=== PATIENT | male | born 1945 | race Caucasian/White ===

== ENCOUNTER → 2017-06-27 | Outpatient (CLI) | payer OTHER ==
[~2017-06-27] MED LIST: ALIS150T3 PO; AMLO10TA4 PO; AVD5 PO; BUPR-79 PO; CTP1X PO; DEXL60CA4 PO; FLUT1INH; METO50TA7 PO; OXYC1CAP5 PO; PLV75 PO; RANI300C PO; REGADENOSON 0.4 MG/5 ML SYR ONE; ROPI0.25 PO; SULF800T23 PO; TERA1CAP63 PO; UMEC1INH INH
--- NOTE | 2017-06-27 19:19 | Myocardial Perfusion Study ---
Myocardial Perfusion Study Rpt Myocardial Perfusion Study Rpt Date of Service 06/27/2017 Myocardial Perfusion Study Rpt Procedure: 1. Myocardial perfusion study performed in multiple views/images 2. Lexiscan pharmacologic stress ECG Indications: 1. Chest pain Consent: Informed written consent was obtained prior to the procedure. Ordering physician: Dr. Stock Primary chro: Dr. Barcenas Procedural details: For the stress portion of the study, Lexiscan 0.4 mg was intravenously administered followed by a saline flush. This was followed by 33.4 mCi of technetium 99m Cardiolite, injected at 1:12 p.m. on 06/27/2017. 30 minutes following the injection, imaging of the heart was performed in multiple projections. For the rest portion of the study, 10.5 mCi technetium 99m Cardiolite was injected intravenously at 11:30 a.m. on 06/27/2017. 1 hour following the injection, imaging of the heart was performed in the same projections. Lexiscan stress ECG: Resting ECG demonstrated: Sinus bradycardia at 50 bpm Maximum heart rate: 83 bpm Resting blood pressure: 146/71 mmHg Maximum blood pressure: 141/78 mmHg Maximal, age-predicted heart rate: 56 % Significant ST changes: None Arrhythmia: None Symptoms: No chest pain. Findings: Rotating raw imaging demonstrated no significant lung uptake. Motion artifact noted in rest imaging. Heart size appeared normal. Myocardial perfusion demonstrated moderate sized area with severely reduced uptake involving the inferior and inferolateral wall segments from base to distal left ventricle, which was reversible. There is no significant fixed defect to suggest infarct. Ejection fraction: 63 % Wall motion: Normal No significant transient ischemic dilation. Impression: 1. Abnormal Lexiscan myocardial perfusion study suggesting inferior and inferolateral ischemia (base to distal LV). 2. Normal LV systolic function. EF 63%. 3. Normal wall motion. 4. No chest pain reported. 5. Nondiagnostic Lexiscan ECG. 6. Dr. Barcenas was notified of the findings.
== END | disposition home or self-care (01) ==
LOC: C.NUCL 11:08
PROVIDERS: ATTEND Physician Assistant Medical
DX: R07.9 Chest pain, unspecified (principal); R94.39 Abnormal result of other cardiovascular function study

== ENCOUNTER → 2017-07-10 | Outpatient (CLI) | payer OTHER ==
[~2017-07-10] MED LIST changes: -REGADENOSON 0.4 MG/5 ML SYR ONE
--- NOTE | 2017-07-10 15:22 | DIAGNOSTIC IMAGING REPORT ---
CHEST 2 VIEWS ROUTINE CLINICAL HISTORY: Preoperative evaluation. COMPARISON STUDY: Chest radiograph 07/15/2016. FINDINGS: Lung volumes are normal. No pneumothorax or pleural effusion is present. There is borderline cardiomegaly without evidence of pulmonary edema. Mild opacity along the left heart border likely reflects epicardial fat pad or atelectasis. There is no consolidation to suggest pneumonia. IMPRESSION: No acute cardiopulmonary findings. Electronically signed by: Tony Reynoso M.D. 07/10/2017 3:21 PM Dictated Date/Time: 07/10/2017 3:20 PM
[2017-07-10 16:53] LABS: HEMATOCRIT 37.4 % (42-52); MEAN CELL VOLUME 91.7 fL (80-100); MEAN CORPUSCULAR HEMOGLOBIN 31.4 pg (25-34); MEAN CORPUSCULAR HGB CONC 34.2 g/dl (32-36); MEAN PLATELET VOLUME 10.4 fL (7.4-10.4); PLATELET COUNT 153 K/uL (130-400); RED BLOOD COUNT 4.08 M/uL (4.7-6.1); WHITE BLOOD COUNT 6.77 K/uL (4.8-10.8)
[2017-07-10 16:59] LABS: PROTHROMBIN TIME (PATIENT) 11.1 SECONDS (9.0-12.0)
[2017-07-10 17:08] LABS: BLOOD UREA NITROGEN 14 mg/dl (7-18); BUN/CREATININE RATIO 9.5 (10-20); CALCIUM 8.6 mg/dl (8.5-10.1); CARBON DIOXIDE 27 mmol/L (21-32); CHLORIDE 108 mmol/L (98-107); GLUCOSE 100 mg/dl (70-99); POTASSIUM 4.3 mmol/L (3.5-5.1); SODIUM 142 mmol/L (136-145)
== END | disposition home or self-care (01) ==
LOC: C.RAD 14:58
PROVIDERS: ATTEND Internal Medicine Cardiovascular Disease
DX: Z01.818 Encounter for other preprocedural examination (principal)

== ENCOUNTER → 2017-07-17 | Day surgery (SDC) | payer OTHER ==
[~2017-07-17] VITALS: Ht 177.8 cm; Wt 105.0 kg
[~2017-07-17] MED LIST changes: +ACETAMINOPHEN 325 MG TAB PO PRN; +ADENOSINE IV SOLN 3 MG/ML 20 ML VIAL ONE; +ALUMINUM/MAGNESIUM/SIMETH (MAALOX MAX) 30 ML UDC ONE; +ATORVASTATIN 40 MG TAB PO SCH; +DUTA0.5C PO; +FENTANYL CITRATE INJ 50 MCG/1 ML 2 ML VIAL ONE; +HEPARIN SOD (PORCINE) 1000 UNIT/ML 10 ML VIAL ONE; +IMDSR30 PO; +ISOSORBIDE MONONITRATE 30 MG TABCR PO ONE; +ISOSORBIDE MONONITRATE 30 MG TABCR PO SCH; +MIDAZOLAM HCL 1 MG/ML 2ML VIAL ONE; +NEBI10TA2 PO; +NITROGLYCERIN 0.4 MG SL PER TAB CHARGE SL PRN; +NITROGLYCERIN/D5W 100MCG/ML 20ML SYR ONE; +NTRSLP4 SL; +NiCARDipine HCL INJ 2.5 MG/ML 10 ML AMP ONE; +ONDANSETRON INJ 2 MG/ML 2 ML VIAL IV PRN; +OXYC-106 PO; +PANT40TA PO; +SODIUM CHLORIDE 0.9% 1000ML 1,000 ML IV SCH; +SODIUM CHLORIDE 0.9% 1000ML 250 ML IV PRN
[2017-07-17 07:09] VITALS: BP 154/93; PULSE 80; TEMP 36.3; O2SAT 100; Ht 177.8 cm; Wt 105.0 kg
--- NOTE | 2017-07-17 08:00 | History and Physical ---
History & Physical Date of Service Jul 17, 2017. History & Physical CHIEF COMPLAINT: Here for cardiac catheterization. HPI: Mr. Reyes is a very pleasant 72-year-old gentleman with a history significant for peripheral arterial disease status post aortobifemoral bypass, hypertension , COPD, and symptoms concerning for angina. His primary signal intelligence analyst is Dr. Barcenas. He has been having increasingly worsening anginal symptoms that are also happening more frequently and with less exertion. He describes angina as a substernal chest pain described as an indigestion that radiates to the left side of his chest toward his left shoulder. It is accompanied by shortness of breath but no diaphoresis. It occurs only with exertion but minimal exertion such as taking a shower can cause the pain. His last episode was last evening. The chest discomfort resolves within a few minutes of rest. He denies rest symptoms. He underwent a myocardial perfusion study on 06/27/2017 which demonstrated a moderate sized area with severely reduced uptake involving the inferior and inferolateral wall segments from base to distal left ventricle, which was reversible, suggesting ischemia. EF was 63% and wall motion was normal. Exercise is otherwise limited secondary to right lower extremity claudication. He follows with vascular surgery. Reports a severe allergy to aspirin. He took very high doses of aspirin many years ago and required resuscitation according to his report. He has been maintained on Plavix. Review of systems: As above. Past medical history: 1. CAD status post aorto bi femoral bypass surgery. 2. Hypertension 3. GERD 4. BPH 5. COPD 6. Eczema Home medications include: 1. Clonidine 0.1 mg twice daily 2. Hytrin 10 mg q.h.s. 3. Breo Ellipta 4. Plavix 75 mg daily 5. Protonix 40 mg daily 6. Amlodipine 10 mg daily 7. Dutasteride 0.5 mg daily 8. Bystolic 10 mg b.i.d. 9. Ranitidine 300 mg daily 10. Percocet every 6 hours as needed for pain 11. Avodart 0.5 mg 12. Incruse Ellipta inhaler Allergies: ASATolectin and was told that he is allergic to aspirin with severe reaction requiring resuscitation. Social history: Former smoker, quit at the age of 70. Lives with his ex-, Jon. He is a . Two children. Exam: Temperature 36.3 C. Pulse 80 bpm. Respiration rate 20. Blood pressure 154/ 93mmHg. Oxygen saturation 100% on room air. Generally: No acute distress. Neck: No JVD. Cardiac: Distant heart sounds. Normal S1 and S2 without audible murmur, rub or gallop. Lungs: Clear to auscultation but decreased breath sounds throughout. Abdomen: Nontender, nondistended, normoactive bowel sounds. Extremities: 2+ radial pulses bilaterally; nivia's test okay. 1+ right femoral pulse without bruit. 2+ left femoral pulse without bruit. No edema or cyanosis. Labs 07/10/2017: INR 1; WBC 6.7; hemoglobin 12.8; platelets 153; sodium 142; potassium 4.3; BUN 14; creatinine 1.5; glucose 100 ASSESSMENT/PLAN: 1. Angina: Symptoms concerning for worsening angina. Coronary angiography has been recommended by his primary signal intelligence analyst, Dr. Barcenas. Risks and benefits of the procedure were discussed with him in detail. He was made aware that CT surgery is not available at this facility. He has given informed written consent to undergo diagnostic coronary angiography, and PCI, if deemed appropriate, at this facility. 2. Presumed CAD based on abnormal nuclear stress: Will definitively evaluate for coronary artery disease with coronary angiography. 3. CAD: Continue anti-platelet therapy. Consider high-intensity statin therapy. 4. CKD: He is receiving IV fluids. 5. Disposition: Coronary angiography pending.
--- NOTE | 2017-07-17 08:01 | Procedure Note ---
Pre-Mod Sedation Assessment General Date of Moderate Sedation: Jul 17, 2017. Vital Signs: Vital Signs Past 12 Hours Date Time Temp Pulse Resp B/P (MAP) Pulse Ox O2 Delivery O2 Flow Rate FiO2 07/17/17 07:09 36.3 80 20 154/93 100 Room Air Review Cardiovascular: regular rate, rhythm, no murmur Abdomen: non tender, soft Lungs: lungs clear Pre-Sedation Airway Assessment Oral Cavity: Dentures Short Thick Neck: No Hx of Sleep Apnea: No Smoking Status: Never Smoker Procedure Planning Contraindications-for Mod Sed: None Yes Notes The planned sedation has been discussed with the patient and consent obtained. I have identified the patient, determined the appropriateness of sedation and have assessed the patient immediately prior to the procedure. All medicine(s) and interventions are by my order.
--- NOTE | 2017-07-17 09:15 | Cardiac Catheterization ---
Procedure Note Procedure Date Jul 17, 2017. Pre-Procedure Diagnosis Angina, Positive Stress Test AUC Score 9 Post-Procedure Diagnosis Severe CAD Procedure(s) Performed Coronary Angiography, Left Heart Cath Design Chief Dr. Cali Sorter Pricer(s) Huang Estimated Blood Loss < 20 ml Medication(s) Fentanyl, Heparin, Nicardipine, Versed, Lidocaine 1% Summary of Findings Coronary angiography: 1. Left main coronary artery: The LMCA is large in caliber without significant CAD. 2. Left anterior descending: The LAD extends toward the apex. Ostial to proximal LAD 50% visually. Early mid LAD long stenotic lesion 50-70%. Distal LAD 30%. Very small caliber D1. Medium caliber D2 with mid 60% stenosis. 3. Circumflex: The circumflex is a medium caliber vessel. Mid circumflex sequential 70 and 80% stenotic lesions. Very small caliber OM1. 4. Ramus intermedius: Ramus intermedius is a large caliber vessel. Ostial to proximal ramus intermedius 30-40. Lateral branch without significant CAD. 5. Right coronary artery: The RCA is very large in caliber and dominant. Proximal RCA 60%. Mid RCA 98% with YANELI 3 flow. There appears to be large calcification burden within the mid RCA stenosis. Distal RCA 30%. Very large caliber PDA and medium caliber posterior lateral branch without significant CAD. Left heart catheterization: 1. Left ventriculography was not performed to conserve contrast given CKD. 2. Normal LVEDP; 11 mmHg. 3. No significant aortic stenosis. Transvalvular peak to peak gradient 0 mmHg. Sedation start time 8:03 a.m. Sedation end time 8:27 a.m. Procedure notes: 1. Diagnostic coronary angiography was performed via the right radial artery without complication. Impression: 1. Severe CAD involving the mid RCA (large calcium burden suspected) and mid circumflex vessels. 2. Borderline severe CAD involving the proximal to mid LAD. 3. Otherwise, nonobstructive CAD as noted above. 4. No aortic stenosis. 5. Normal LVEDP. Plan: 1. FFR of LAD pending with Dr. Laguerre of interventional Cardiology. 2. Dr. Laguerre has reviewed images. RCA PCI felt to be high risk given calcium burden. 3. If FFR of LAD is abnormal, would consider CT surgery evaluation for multivessel bypass. 4. Recommend initiation of high-intensity statin therapy. 5. Optimize medical therapy for angina. Hemodynamics Rest Ao: 137/53 Final Ao: 128/57 LV: 116/9/11 Recommendations management recommendations (FFR of LAD. ) Specimens None Radiation Exposure (mGy) 1344 mGy. Fluoro time 3.6 min. Contrast (mls) 65 ml visipaque Procedural Complication(s) None Disposition Face And Fill Packer Holding/Recovery (remained in prosthetic lab technician for FFR) ACC Data Cardiac Status Clinical evaluation leading to the procedure CAD Presntation: Unstable angina, Positive Stress Test Anginal Classification: CCS III Heart Failure: No Cardiogenic Shock w/in 24Hrs: No Cardiac Arrest w/in 24Hrs: No Imaging studies past 6 months: No Stress studies past 6 months: Yes Standard Exercise Stress Test: No Stress Testing w/SPECT MPI: Yes - Positive, Risk/Extent of Ischemia (High) Cardiac CTA: No Coronary Anatomy Dominant: Right Left Main (% Stenosis): Normal LAD (% Stenosis): Ostial (50%), Proximal (50%), Mid (60%), Distal (30%) D1 (% Stenosis): Mid (60%) Circumflex (% Stenosis): Mid (70% and 80% sequential stenoses) OM1 (% Stenosis): Normal RCA (% Stenosis): Proximal (60%), Mid (98%), Distal (30%) R PDA (% Stenosis): Normal R PL1 (% Stenosis): Normal Ramus (% Stenosis): Ostial (30%) Left Ventricular Angiography EF (%): n/a Diagnostic Physician's Name: Edgardo Cali MD Status: Elective Closure Device Percutaneous Entry Location: Radial Closure Device: Radial Band (following FFR by Dr. Laguerre) Recommendations: management recommendations (FFR of LAD)
--- NOTE | 2017-07-17 09:52 | Discharge Instructions ---
Discharge Instructions Date of Service Jul 17, 2017. Visit Reason for Visit: Cardiac catheterization Discharge Discharge Diagnosis / Problem: Severe multivessel coronary artery disease. Discharge Goals Goal(s): Diagnostic testing Medications Restart Stopped Medication(s): Resume your usual medications. Start Imdur 30 mg once daily. Activity Recommendations Activity Limitations: per Instructions/Follow-up section Anesthesia . Post Anesthesia Instructions: If you have had General Anesthesia or IV Sedation: * Do not drive today. * Resume driving when surgeon permits. * Do not make important decisions or sign legal documents today. * Call surgeon for: 1. Temperature elevations greater than 101 degrees F. 2. Uncontrollable pain. 3. Excessive bleeding. 4. Persistent nausea and vomiting. 5. Medication intolerance (nausea, vomiting or rash). * For nausea and vomiting use only clear liquids such as: tea, soda, bouillon until nausea subsides, then gradually increase diet as tolerated. * If you have any concerns or questions, call your surgeon's office. If physician is unavailable and it is an emergency, call 911 or go to the nearest emergency room. . Instructions / Follow-Up Instructions / Follow-Up Follow Up: 1. CT surgery at [facility] in [place] to evaluate for possibility of bypass surgery. 2. Follow up with Dr. Barcenas will be arranged for you. His office will contact you with time/date of appointment. ACTIVITY RECOMMENDATIONS: Excess manipulation of the wrist should be avoided for the next 24-48 hours. * No lifting over 2 pounds (approximately a 1/2 gallon of milk) with the utilized arm for 24 hours. * No strenuous activity such as bowling or tennis for 3 days. * Keep the site of the procedure covered with a bandage for 24 hours. *You may shower the day after the procedure. Do not take a tub bath or submerge the puncture site in water for the next 3 days. *Do not operate any motorized equipment for 3 days. SPECIAL CARE INSTRUCTIONS: The site may be slightly bruised and sore following your procedure. Should any of the following occur, contact the DrMaricarmen who performed your procedure. 1. Redness/inflammation, swelling, chills, or fever, or colored drainage at procedure site within 3-7 days after your procedure. 2. Coldness, discoloration, ongoing numbness, severe pain, or swelling. Expect mild tingling of hand and tenderness at the puncture site for up to three days. If this persists beyond three days, or other symptoms develop, notify the Dr. who performed your procedure. BLEEDING: If the procedure site on your wrist begins to bleed, do not panic 1. Place 1 or 2 fingers firmly just slightly above the insertion site to stop the bleeding. You may be able to feel your pulse as you hold pressure. 2. Lift your finger after 5 minutes to see if the bleeding has stopped. 3. Once the bleeding has stopped, gently wipe the wrist area clean with a bandage. * If the bleeding from your wrist does not stop after 10 minutes, or if there is a large amount of bleeding or spurting, call 911 (do not drive yourself to the hospital). SKIN IRRITATION: * You may experience some redness and/or swelling in the area where radiation was administered. If any skin irritation occurs, please contact your family physician. FOLLOW UP VISIT: Keep any scheduled doctor appointments. Diet Recommendations Recommended Home Diet: low cholesterol Procedures Procedures Performed: Coronary angiography and left heart catheterization. FFR. Pending Studies Studies pending at discharge: yes List of pending studies: Lab work in 2-3 days. Medical Emergencies . Who to Call and When: Medical Emergencies: If at any time you feel your situation is an emergency, please call 911 immediately. . Non-Emergent Contact Non-Emergency issues call your: Primary Care Provider, International Organizer . . "Provider Documentation" section prepared by Edgardo Funez. .
--- NOTE | 2017-07-17 09:56 | Cardiac Catheterization ---
Procedure Note Procedure Date Jul 17, 2017. Pre-Procedure Diagnosis Angina, Positive Stress Test, CAD AUC Score 9 Post-Procedure Diagnosis Severe CAD, Cardiothoracic Finding (FFR of proximal LAD is physiologically significant) Procedure(s) Performed Coronary Angiography, Fractional Flow Marty Cotton Wringer Dr. Laguerre Food Vendor(s) Luciana Encinas, RTR Estimated Blood Loss 15 ml Medication(s) Heparin, Nicardipine (intra arterial), Versed, Adenosine Intravenous adenosine given at dose of 180 ug/kg/min for two minutes Summary of Findings Indications: Moderate proximal and early mid LAD stenoses on diagnostic coronary angiography performed by Dr. Jim Cali. Catheterization site: 6 Fr Slender Glidesheath right radial artery inserted at time of diagnostic procedure. Equipment: 6 Fr EBU 3.75 guide catheter, PingTune pressure wire. Protocol: IV heparin given to achieve a therapeutic ACT. After calibration and normalization of the pressure wire it was inserted into the LAD with transducer past the early mid LAD stenosis. IFR first measured. FFR then measured after IV adenosine given for two minutes over 2 minutes at a dose of 180 ug/kg/min.Follow up angiography then performed from orthogonal projections. Findings: IFR 0.84. FFR 0.76. No evidence of dissection, thrombus, perforation, or distal embolic event. YANELI 3 flow in LAD pre and post wire insertion. Hemodynamics Rest Ao: 128/58/74 mm Hg Final Ao: 136/56/88 mm Hg LV: NA Recommendations CABG Specimens None Radiation Exposure (mGy) total of 2531 for diagnostic and FFR procedure Contrast (mls) total of 135 ml Visipaque for both procedures Fluids (cc crystalloids) total of 540 ml for both procedures Drains none Anesthesia IV Versed. Start 8:52. End 9:10. Procedural Complication(s) None Disposition Route Service Representative Holding/Recovery ACC Data Cardiac Status Clinical evaluation leading to the procedure CAD Presntation: Unstable angina, Positive Stress Test Anginal Classification: CCS III Heart Failure: No Cardiogenic Shock w/in 24Hrs: No Cardiac Arrest w/in 24Hrs: No Imaging studies past 6 months: Yes Stress studies past 6 months: Yes Standard Exercise Stress Test: No Stress Echocardiogram: No Stress Testing w/SPECT MPI: Yes - Positive, Risk/Extent of Ischemia (High) Cardiac CTA: No Coronary Anatomy Dominant: Right LAD (% Stenosis): Ostial (50), Mid (60-70) Left Ventricular Angiography EF (%): NA Diagnostic Physician's Name: Edgardo Cali MD Status: Elective Closure Device Percutaneous Entry Location: Radial Closure Device: Radial Band Recommendations: CABG Lesion Segment Name: Ostial and early mid LAD Culprit Artery: Yes Stenosis Prior to Rx (%): 50,60-70 Chronic Total Occlusion: No IVUS: No FFR: Yes (0.76) Ratio: greater than 0.75% Pre-Procedure YANELI Flow: 3 Previously Treated Lesion: No Lesion Complexity: Non-High/Non-C Lesion Length (mm): 3,9 Thrombus Present: No Bifurcation Lesion: No Guidewire Across Lesion: Yes Guidewire: Stenosis Post-Procedure (%): 50,60-70 Post-Procedure YANELI Flow: 3 Device(s) Deployed: No Intraprocedure Events Significant Dissection: No Perforation: No
[2017-07-17 12:00] VITALS: BP 100/52; PULSE 57; O2SAT 95
== END | disposition home or self-care (01) ==
LOC: C.CATH 06:59
PROVIDERS: ATTEND Internal Medicine Cardiovascular Disease
DX: I25.10 Atherosclerotic heart disease of native coronary artery without angina pectoris (principal); I12.9 Hypertensive chronic kidney disease with stage 1 through stage 4 chronic kidney disease, or unspecified chronic kidney disease; N18.9 Chronic kidney disease, unspecified; K21.9 Gastro-esophageal reflux disease without esophagitis; N40.0 Benign prostatic hyperplasia without lower urinary tract symptoms; I73.9 Peripheral vascular disease, unspecified; R53.82 Chronic fatigue, unspecified; L30.9 Dermatitis, unspecified; J44.9 Chronic obstructive pulmonary disease, unspecified; K57.30 Diverticulosis of large intestine without perforation or abscess without bleeding; Z87.891 Personal history of nicotine dependence

== ENCOUNTER → 2017-07-21 | Outpatient (CLI) | payer OTHER ==
[~2017-07-21] MED LIST changes: -ACETAMINOPHEN 325 MG TAB PO PRN; -ADENOSINE IV SOLN 3 MG/ML 20 ML VIAL ONE; -ALIS150T3 PO; -ALUMINUM/MAGNESIUM/SIMETH (MAALOX MAX) 30 ML UDC ONE; -ATORVASTATIN 40 MG TAB PO SCH; -BUPR-79 PO; -DEXL60CA4 PO; -FENTANYL CITRATE INJ 50 MCG/1 ML 2 ML VIAL ONE; -HEPARIN SOD (PORCINE) 1000 UNIT/ML 10 ML VIAL ONE; -ISOSORBIDE MONONITRATE 30 MG TABCR PO ONE; -ISOSORBIDE MONONITRATE 30 MG TABCR PO SCH; -METO50TA7 PO; -MIDAZOLAM HCL 1 MG/ML 2ML VIAL ONE; -NITROGLYCERIN 0.4 MG SL PER TAB CHARGE SL PRN; -NITROGLYCERIN/D5W 100MCG/ML 20ML SYR ONE; -NiCARDipine HCL INJ 2.5 MG/ML 10 ML AMP ONE; -ONDANSETRON INJ 2 MG/ML 2 ML VIAL IV PRN; -OXYC1CAP5 PO; -ROPI0.25 PO; -SODIUM CHLORIDE 0.9% 1000ML 1,000 ML IV SCH; -SODIUM CHLORIDE 0.9% 1000ML 250 ML IV PRN; -SULF800T23 PO
[2017-07-21 18:00] LABS: BLOOD UREA NITROGEN 15 mg/dl (7-18); BUN/CREATININE RATIO 10.5 (10-20); CALCIUM 9.3 mg/dl (8.5-10.1); CARBON DIOXIDE 25 mmol/L (21-32); CHLORIDE 106 mmol/L (98-107); CREATININE 1.38 mg/dl (0.60-1.40); GLUCOSE 112 mg/dl (70-99); POTASSIUM 4.7 mmol/L (3.5-5.1); SODIUM 138 mmol/L (136-145)
== END | disposition home or self-care (01) ==
LOC: C.LABBFT 13:56
PROVIDERS: ATTEND Internal Medicine Cardiovascular Disease

== ENCOUNTER → 2017-07-25 | Outpatient (CLI) | payer OTHER ==
[2017-07-25 15:19] LABS: ALLEN TEST POS (POS); ARTERIAL BLD GAS O2 SATURATION 95.4 % (90-95); ARTERIAL BLOOD GAS BASE EXCESS -0.4 mEq/L (-9-1.8); ARTERIAL BLOOD GAS HCO3 23 mmol/L (19-24); ARTERIAL BLOOD GAS PO2 77 mm/Hg (80-95); ARTERIAL BLOOD GAS pH 7.46 (7.35-7.45); O2 ADMINISTRATION RA
== END | disposition home or self-care (01) ==
LOC: C.LAB 14:30
PROVIDERS: ATTEND Physician Assistant
DX: I25.110 Atherosclerotic heart disease of native coronary artery with unstable angina pectoris (principal); I73.9 Peripheral vascular disease, unspecified; J44.9 Chronic obstructive pulmonary disease, unspecified

== ENCOUNTER → 2017-09-05 | Outpatient (CLI) | payer OTHER ==
[2017-09-05 17:02] LABS: BASO % 0.5 %; BASO ABS # 0.05 K/uL (0-0.2); EOS % 6.9 %; EOS ABS # 0.68 K/uL (0-0.5); HEMATOCRIT 31.5 % (42-52); HEMOGLOBIN 9.9 g/dL (14.0-18.0); IG# 0.05 K/uL (0.00-0.02); LYMPH % 10.2 %; MEAN CELL VOLUME 98.4 fL (80-100); MEAN CORPUSCULAR HEMOGLOBIN 30.9 pg (25-34); MEAN CORPUSCULAR HGB CONC 31.4 g/dl (32-36); MEAN PLATELET VOLUME 9.7 fL (7.4-10.4); MONO % 6.4 %; MONO ABS # 0.63 K/uL (0.11-0.59); NEUT % 75.5 %; NEUT ABS # 7.42 K/uL (1.4-6.5); PLATELET COUNT 295 K/uL (130-400); RED CELL DISTRIBUTION WIDTH CV 14.6 % (11.5-14.5); RED CELL DISTRIBUTION WIDTH SD 51.6 fL (36.4-46.3); WHITE BLOOD COUNT 9.83 K/uL (4.8-10.8)
[2017-09-05 17:19] LABS: ALBUMIN 3.3 gm/dl (3.4-5.0); BLOOD UREA NITROGEN 16 mg/dl (7-18); CALCIUM 8.9 mg/dl (8.5-10.1); CARBON DIOXIDE 26 mmol/L (21-32); GLUCOSE 168 mg/dl (70-99); POTASSIUM 3.5 mmol/L (3.5-5.1); SODIUM 137 mmol/L (136-145)
[2017-09-05 17:23] LABS: ALKALINE PHOSPHATASE 101 U/L (45-117); ALT/SGPT 26 U/L (12-78); AST/SGOT 18 U/L (15-37); TOTAL PROTEIN 7.5 gm/dl (6.4-8.2)
== END | disposition home or self-care (01) ==
LOC: C.LABSPEC 12:01
PROVIDERS: ATTEND Hospitalist
DX: I10 Essential (primary) hypertension (principal); I50.32 Chronic diastolic (congestive) heart failure

== ENCOUNTER 2019-05-16 23:23 | Inpatient (IN) ==
[2019-05-16] MEDS: METOPROLOL TARTRATE 1 MG/ML VIAL IV, PRN (23:49)
[2019-05-16 23:52] LABS: Basophils # (auto) 0.03 K/uL (0-0.2); Basophils % (auto) 0.4 %; Eosinophils # (auto) 0.37 K/uL (0-0.5); Eosinophils % (auto) 4.7 %; Hematocrit (blood only) 35.1 % (42-52); Hemoglobin 11.9 g/dL (14.0-18.0); Immature Granulocytes # (auto) 0.02 K/uL (0.00-0.02); Immature Granulocytes % (auto) 0.3 %; Lymphocytes # (auto) 1.37 K/uL (1.2-3.4); Lymphocytes % (auto) 17.5 %; Mean Corpuscular Hgb Conc 33.9 g/dL (32-36); Mean Corpuscular Volume 92.6 fL (80-100); Mean Platelet Volume 10.1 fL (7.4-10.4); Monocytes # (auto) 0.67 K/uL (0.11-0.59); Monocytes % (auto) 8.6 %; Neutrophils # (auto) 5.37 K/uL (1.4-6.5); Neutrophils % (auto) 68.5 %; Platelet Count 164 K/uL (130-400); RDW Coefficient of Variation 14.5 % (11.5-14.5); RDW Standard Deviation 48.4 fL (36.4-46.3); Red Blood Count 3.79 M/uL (4.7-6.1); White Blood Count 7.83 K/uL (4.8-10.8)
[2019-05-17 00:02] LABS: INR 1.2 (0.9-1.1); Partial Thromboplastin Ratio 1.1; Partial Thromboplastin Time 28.6 Seconds (21.0-31.0); Prothrombin Time 12.2 Seconds (9.0-12.0)
[2019-05-17] MEDS: METOPROLOL TARTRATE 1 MG/ML VIAL IV, PRN ×2 (00:07→00:35)
[2019-05-17 00:09] LABS: Alanine Aminotransferase 22 U/L (12-78); Albumin Level 3.7 gm/dl (3.4-5.0); Aspartate Aminotransferase 12 U/L (15-37); BUN Creatinine Ratio 10.8 (10-20); Blood Urea Nitrogen 16 mg/dl (7-18); Calcium 8.5 mg/dl (8.5-10.1); Carbon Dioxide 26 mmol/L (21-32); Chloride 110 mmol/L (98-107); Est GFR (African American) 54.5; Glucose 146 mg/dl (70-99); Potassium 3.6 mmol/L (3.5-5.1); Sodium 142 mmol/L (136-145)
[2019-05-17] MEDS ORDERED: FUROSEMIDE 40 MG/4 ML VIAL IV STA (00:13)
[2019-05-17 00:20] LABS: Alkaline Phosphatase 90 U/L (45-117); Bilirubin,Total 0.5 mg/dl (0.2-1); Globulin 3.8 gm/dl (2.5-4.0); Total Protein 7.5 gm/dl (6.4-8.2); Troponin I < 0.015 ng/ml (0-0.045)
--- NOTE | 2019-05-17 01:27 | History & Physical Report ---
Date of Service May 17, 2019 Assessment & Plan (1) Rapid atrial fibrillation: 73 y/o M Hx CAD, PVD, BPH, HTN, COPD, chronic back pain. The pt presents with a chief complaint of progressive SOB. He also noted that his HR was high and tends to increase with slight activity. He denies CP and denies a productive cough or fevers. His HR on arrival to the ER was ~ 130. He responded to additional metoprolol and his resting HR normalized. However, he continues to exhibit a rapid rate and SOB with minimal exertion. Initial labs are approximately at baseline. A CXR is consistent with vascular congestion. 1) Rapid AF - the pt responded to additional metoprolol and has a resting HR in the low 70s. This increases considerably with minimal exertion. This is likely compensation due to underlying volume overload so we will focus on diuresis rather than additional rate control. He will remain on Eliquis and BID metoprolol. 2) CHF - may have been the result of persistent rapid AF - we will obtain an echo and consult his ultrasound coordinator. I/O, daily weights and diuresis with Lasix ordered. 3) CAD - no evidence of ACS - cont Plavix (severe ASA allergy. He is not taking a statin. There is likely a reason for this and we will therefore defer to his ultrasound coordinator on this issue. 4) HTN - Clonidine held to allow for additional rate agents overnight. 5) COPD - If his SOB does not significantly improve with diuresis, would consider treating for exacerbation. Cont prescribed inhalers for now. 6) BPH - cont Dutasteride, Terazosin Full code - Eliquis prophylaxis Total time for this admit including review of labs, meds, imaging, records - discussion with pt and ER attending - 37 min Present on Admission?: Yes History of Present Illness Chief Complaint: SOB, AF/RVR Primary Care Provider: Marcio Bravo M.D. 73 y/o M Hx CAD, PVD, BPH, HTN, COPD, chronic back pain. The pt presents with a chief complaint of progressive SOB. He also noted that his HR was high and tends to increase with slight activity. He denies CP and denies a productive cough or fevers. His HR on arrival to the ER was ~ 130. He responded to additional metoprolol and his resting HR normalized. However, he continues to exhibit a rapid rate and SOB with minimal exertion. Initial labs are approximately at baseline. A CXR is consistent with vascular congestion. PMH: 1) CAD - a cardiac cath in 2017 demonstrated severe, diffuse disease including 98% RCA stenosis. He was sent to [facility] for a CABG 2) Chronic AF 3) COPD 4) PVD - BL aortofemoral bypass 5) HTN 6) BPH Surgical: 1) BL aortofemoral bypass 2) CABG - 3V 2017 Social: Quit smoking at age 70 - 50 PYH. Does not drink. [employer] worked "spraying herbicides" Family: Noncontributory Allergies Allergy/AdvReac Type Severity Reaction Status Date / Time aspirin Allergy Severe ANAPHYLAXIS Verified 05/16/19 23:55 Home Medications Home Medications Medication Instructions Recorded Confirmed Type apixaban [Eliquis] 5 mg PO BID 05/16/19 05/16/19 History clonidine HCl 0.1 mg PO BID 05/16/19 05/16/19 History clopidogrel [Plavix] 75 mg PO DAILY 05/16/19 05/16/19 History dutasteride 0.5 mg PO DAILY 05/16/19 05/16/19 History metoprolol tartrate 100 mg PO BID 05/16/19 05/16/19 History pantoprazole 40 mg PO DAILY 05/16/19 05/16/19 History ranitidine HCl 300 mg PO HS 05/16/19 05/16/19 History terazosin 10 mg PO HS 05/16/19 05/16/19 History umeclidinium [Incruse Ellipta] 1 inh INHALATION DAILY 05/16/19 05/16/19 History fluticasone furoate-vilanterol 1 inh INHALATION DAILY 05/17/19 05/17/19 History [Breo Ellipta] oxycodone-acetaminophen 1 tab PO DIRECTED PRN 05/17/19 05/17/19 History Past Med/Surg History Medical History Aortoiliac obstruction Atrial flutter by electrocardiogram Evisceration of bowel Iliac artery occlusion (Acute) Severe peripheral arterial disease Surgical History S/P triple vessel bypass Social History Feels Safe at Home: Yes Smoking Status: Former smoker Review of Systems Review of Systems: Gen: Denies fevers, night sweats, rigors, fatigue, malaise, weight loss/gain ENT: Denies congestion, throat pain, hearing loss Eyes: Denies acute visual changes CV: Elevated HR with exertion Pulmonary: Dyspnea - pronounced with minimal exertion GI: Denies N/V, diarrhea, constipation Neuro: Denies acute or unilateral weakness, acute gait impairment, headache or acute visual changes Musculoskeletal: Denies joint pain, inflammation Endocrine: Denies polydipsia, polyuria Skin: Denies acute rashes or ulcers Physical Exam Physical Exam: General: AAO x 3, no distress ENT: No erythema or exudates, no thrush Eyes: RICHARD, EOMI Head and neck: Normocephalic, atraumatic, + JVD, neck is supple. Chest/heart: Nontender, S1,2, irr, Lungs: Poor air movement, + end expiratory wheezing Abdomen: Nontender, nondistended, BS+ Neuro: AAO x 3, speech is clear, no unilateral weakness or loss of sensation, coordination intact Musculoskeletal: No joint inflammation, muscle tenderness, FROM Skin: No acute rashes or ulcers Extremities: No clubbing, cyanosis - minimal edema Results & Data Vital Signs (Past 12 Hours) Vital Signs Temp Pulse Pulse Resp BP BP Pulse Ox 05/17/19 00:45 88 18 136/76 94 05/17/19 00:35 106 H 116/76 05/17/19 00:20 92 H 16 121/90 93 05/17/19 00:13 93 05/17/19 00:11 89 L 05/17/19 00:07 126 H 124/90 05/16/19 23:54 111 H 19 118/84 92 05/16/19 23:49 134 H 141/93 H 05/16/19 23:39 93 05/16/19 23:35 92 05/16/19 23:26 98.2 F 136 H 32 H 143/84 H 94 Code Status & VTE Plan VTE Prophylaxis Plan VTE Prophylaxis will be ordered: Yes PG Care Time/CCT Total # of Minutes Spent Total Time Spent with Patient: Total time spent is greater than 50% in coordination of care (as documented) at patient's floor/unit and/or counseling patient:
[2019-05-17] MEDS ORDERED: POLYETHYLENE (MIRALAX) 17 GM PACK PO PRN (02:08)
[2019-05-17] MEDS ORDERED: ALUMINUM/MAGNESIUM SUSP 30 ML UDC PO PRN (02:08)
[2019-05-17] MEDS ORDERED: MAGNESIUM HYDROXIDE SUSP 30 ML UDC PO PRN (02:08)
[2019-05-17] MEDS ORDERED: NITROGLYCERIN SL 0.4 MG/TAB TAB SL PRN (02:08)
[2019-05-17] MEDS ORDERED: ACETAMINOPHEN 325 MG TAB PO PRN (02:08)
[2019-05-17] MEDS ORDERED: MoRPHine SULFATE 2 MG/ML CARP IV PRN (02:08)
[2019-05-17] MEDS ORDERED: ONDANSETRON INJ 2 MG/ML 2 ML VIAL IV PRN (02:08)
--- NOTE | 2019-05-17 04:13 | Emergency Department Note ---
Entered by Katelyn Meadows acting as a scribe for Jocelyn Burroughs MD History of Present Illness General Chief complaint: Cardiac Assessment Stated complaint: SOB, AFIB Time Seen by Provider: 05/16/19 23:27 Source: patient and family History of Present Illness Onset (ago): hour(s) 1 Location: head (Tachycardia) Severity: similar to prior episodes Pain Consistency: + other (Sudden) Quality: + other (Tachycardia) Associated symptoms: + chest pain (Tachycardia) and + shortness of breath; no cough The patient is a 73 year old male presenting to the Emergency Department complaining of sudden tachycardia starting 1 hour ago. The patient reports that he was sitting in his chair, stood up and felt his blood pressure and heart rate increase. He explains that since then his heart rate has still been fast. He states that he has been short of breath for the past 3 weeks because his A-fib has not been under control. He notes that he has experienced these symptoms before as he usually goes into A-fib after getting surgery. He adds that he sees Dr. Barcenas numerical control router operator and has an appointment with him in 3 days. The patient reports that he sees Dr. Bravo PCP who did a routine EKG on the patient 3 weeks ago and found him to be in atrial fib. Patient states that that time his metoprolol was titrated up to 100 mg twice daily and he began Eliquis. He states that he quit smoking tobacco 3.5 years ago. He denies recent cough and cold symptoms. Home Medications Home Medications Medication Instructions Recorded Confirmed Type apixaban [Eliquis] 5 mg PO BID 05/16/19 05/16/19 History clonidine HCl 0.1 mg PO BID 05/16/19 05/16/19 History clopidogrel [Plavix] 75 mg PO DAILY 05/16/19 05/16/19 History dutasteride 0.5 mg PO DAILY 05/16/19 05/16/19 History metoprolol tartrate 100 mg PO BID 05/16/19 05/16/19 History pantoprazole 40 mg PO DAILY 05/16/19 05/16/19 History ranitidine HCl 300 mg PO HS 05/16/19 05/16/19 History terazosin 10 mg PO HS 05/16/19 05/16/19 History umeclidinium [Incruse Ellipta] 1 inh INHALATION DAILY 05/16/19 05/16/19 History fluticasone furoate-vilanterol 1 inh INHALATION DAILY 05/17/19 05/17/19 History [Breo Ellipta] oxycodone-acetaminophen 1 tab PO DIRECTED PRN 05/17/19 05/17/19 History Allergies Allergy/AdvReac Type Severity Reaction Status Date / Time aspirin Allergy Severe ANAPHYLAXIS Verified 05/16/19 23:55 Past Med/Surg History Medical History Aortoiliac obstruction Atrial flutter by electrocardiogram Evisceration of bowel Iliac artery occlusion (Acute) Severe peripheral arterial disease Surgical History S/P triple vessel bypass Social History Preferred Language: Spanish Communication Ability: Effective Awning Assembler Required: No Beliefs That Will Affect Care: None Current Living Situation: Other Feels Safe at Home: Yes Smoking Status: Former smoker Hx Alcohol Use: No Hx Substance Use: No Review of Systems See HPI for pertinent positives & negatives. and A total of 10 systems reviewed and were otherwise negative Physical Exam Vital Signs Vital Signs - 24 hr 05/16/19 23:26 05/16/19 23:35 05/16/19 23:39 Temperature 36.8 C Temperature Source Oral Sepsis Action Taken by Nursing No Action Required Pulse Rate 136 H Pulse Rate [Finger] Respiratory Rate 32 H Respiratory Effort / Characteristics Labored Blood Pressure 143/84 H Blood Pressure [Left Arm] Blood Pressure Mean 103 Blood Pressure Mean [Left Arm] Pulse Oximetry 94 92 93 Oxygen Delivery Method Room Air Room Air Room Air Oxygen Flow Rate 05/16/19 23:49 05/16/19 23:54 05/17/19 00:07 Temperature Temperature Source Sepsis Action Taken by Nursing Pulse Rate 134 H 126 H Pulse Rate [Finger] 111 H Respiratory Rate 19 Respiratory Effort / Characteristics Blood Pressure 141/93 H 124/90 Blood Pressure [Left Arm] 118/84 Blood Pressure Mean Blood Pressure Mean [Left Arm] 95 Pulse Oximetry 92 Oxygen Delivery Method Room Air Oxygen Flow Rate 05/17/19 00:11 05/17/19 00:13 05/17/19 00:20 Temperature Temperature Source Sepsis Action Taken by Nursing Pulse Rate Pulse Rate [Finger] 92 H Respiratory Rate 16 Respiratory Effort / Characteristics Blood Pressure Blood Pressure [Left Arm] 121/90 Blood Pressure Mean Blood Pressure Mean [Left Arm] 100 Pulse Oximetry 89 L 93 93 Oxygen Delivery Method Room Air Nasal Cannula Nasal Cannula Oxygen Flow Rate 2 2 05/17/19 00:35 05/17/19 00:45 Temperature Temperature Source Sepsis Action Taken by Nursing Pulse Rate 106 H Pulse Rate [Finger] 88 Respiratory Rate 18 Respiratory Effort / Characteristics Blood Pressure 116/76 Blood Pressure [Left Arm] 136/76 Blood Pressure Mean Blood Pressure Mean [Left Arm] 96 Pulse Oximetry 94 Oxygen Delivery Method Nasal Cannula Oxygen Flow Rate 2 Vital signs reviewed. General: Well-appearing 73 year old male, in no significant distress. HEENT: No scleral icterus, PERRLA, neck supple. Atraumatic. Cardiovascular: Rapid and irregularly irregular heart rate. No extra sounds. Pulmonary: Clear to auscultation bilaterally, normal work of breathing. Crackles and wheezing bilaterally. Abdomen: Soft, nontender, nondistended, positive bowel sounds. Obese abdomen. Musculoskeletal: Atraumatic, no peripheral edema. Neurologic: Patient awake alert and oriented x 3 Skin: Warm, dry, no rash Course 2337: The patient was evaluated in room B10, and a complete history and physical examination were performed. 0030: I updated the patient at this time and discussed his disposition. 0100: I discussed the patients case with Dr. Travis RODAS hospitalist. He will evaluate the patient for further management. Consultations Consultation #1: I discussed the patients case with Dr. Travis RODAS hospitalist. He will evaluate the patient for further management. Time: 01:00 Administered Medications Discontinued Medications Furosemide (Lasix) 40 mg IV NOW STA Stop: 05/17/19 00:14 Last Admin: 05/17/19 00:19 Dose: 40 mg Documented by: [id number] Metoprolol Tartrate (Lopressor) 5 mg IV, Q5M PRN PRN Reason: Tachycardia Stop: 06/15/19 23:44 Last Admin: 05/17/19 00:35 Dose: 5 mg Documented by: [id number] Admin: 05/17/19 00:07 Dose: 5 mg Documented by: [id number] Admin: 05/16/19 23:49 Dose: 5 mg Documented by: [id number] Medical Decision Making Differential Diagnosis Differential diagnoses includes but is not limited to pneumonia, bronchitis, COPD/Asthma exacerbation, pneumothorax, pulmonary embolism, congestive heart failure, acute coronary syndrome. Medical Records Attestation: I reviewed the patient's medical records. Home Medications Current Medication List: was personally reviewed by me Laboratory Data Attestation: I reviewed the patient's lab results. Result diagrams: 05/16/19 23:44 05/16/19 23:44 Lab Results 05/16/19 05/16/19 05/16/19 Range/Units 23:44 23:44 23:44 WBC 7.83 (4.8-10.8) K/uL RBC 3.79 L (4.7-6.1) M/uL Hgb 11.9 L (14.0-18.0) g/dL Hct 35.1 L (42-52) % MCV 92.6 (80-100) fL MCH 31.4 (25-34) pg MCHC 33.9 (32-36) g/dL RDW Std Deviation 48.4 H (36.4-46.3) fL RDW Coeff of [place] 14.5 (11.5-14.5) % Plt Count 164 (130-400) K/uL MPV 10.1 (7.4-10.4) fL Immature Gran % (Auto) 0.3 % Neut % (Auto) 68.5 % Lymph % (Auto) 17.5 % [place] % (Auto) 8.6 % Eos % (Auto) 4.7 % Baso % (Auto) 0.4 % Immature Gran # (Auto) 0.02 (0.00-0.02) K/uL Neut # (Auto) 5.37 (1.4-6.5) K/uL Lymph # (Auto) 1.37 (1.2-3.4) K/uL [place] # (Auto) 0.67 H (0.11-0.59) K/uL Eos # (Auto) 0.37 (0-0.5) K/uL Baso # (Auto) 0.03 (0-0.2) K/uL PT 12.2 H (9.0-12.0) Seconds INR 1.2 H (0.9-1.1) APTT 28.6 (21.0-31.0) Seconds PTT Ratio 1.1 Sodium 142 (136-145) mmol/L Potassium 3.6 (3.5-5.1) mmol/L Chloride 110 H (98-107) mmol/L Carbon Dioxide 26 (21-32) mmol/L Anion Gap 7.0 (3-11) BUN 16 (7-18) mg/dl Creatinine 1.46 H (0.6-1.4) mg/dl Est Cr Clr Drug Dosing Not Reportable Est GFR ( Amer) 54.5 Est GFR (Non-Af Amer) 47.0 BUN/Creatinine Ratio 10.8 (10-20) Glucose 146 H (70-99) mg/dl Calcium 8.5 (8.5-10.1) mg/dl Magnesium 2.0 (1.8-2.4) mg/dl Total Bilirubin 0.5 (0.2-1) mg/dl AST 12 L (15-37) U/L ALT 22 (12-78) U/L Alkaline Phosphatase 90 (45-117) U/L Troponin I < 0.015 (0-0.045) ng/ml Total Protein 7.5 (6.4-8.2) gm/dl Albumin 3.7 (3.4-5.0) gm/dl Globulin 3.8 (2.5-4.0) gm/dl Albumin/Globulin Ratio 1.0 (0.9-2) TSH 0.547 (0.300-4.500) uIu/ml Imaging Data Attestation: I personally reviewed and interpreted this imaging study as follows: My Impression: XR Chest 1V: Post sternotomy change with congestive prominence in the bilateral lower lung donohue. No pleural effusion. ECG Data Attestation: I personally reviewed and interpreted this ECG as follows: Indication: SOB/dyspnea Rate (beats per minute): 131 Rhythm: atrial fibrillation (with RVR) Findings: + other (QTC 401.) and + ST depression (ST depression in lateral leads with repolarization abnormality in the inferior leads. ) Blood Pressure Blood Pressure Findings: Normal blood pressure Blood Pressure Disposition: further management by hospitalist GHASSAN Nelson This patient was evaluated and appeared to be in some discomfort. Patient was placed on court recording monitor and found to be in rapid atrial fibrillation. He did require O2 supplementation with nasal cannula. Chest x-ray was performed and reveals congestive change. Laboratory work reveals a normal troponin. Patient does receive IV metoprolol 5 mg x 3 doses with better rate control. However the patient did remain in an atrial fibrillation. Given the patient's hypoxia and congestive change, he was given Lasix 40 mg IV. Patient's case was discussed with Dr. Robles of the hospitalist service who will evaluate the patient for further management. Patient is aware of the plan and agrees. Impression & Plan Atrial fibrillation with RVR, CHF (congestive heart failure) Critical Care Time Critical Care Time: Yes Total Critical Care Time: 35 I have personally spent 35 minutes of critical care time in the direct management of this patient. This includes bedside care, interpretation of diagnostic studies, and testing, discussion with consultants, patient, and family members, and other required patient management activities. This 35 minutes is in excess of all separately billable procedures. Discharge Plan Visit Data *Final* Discharge Date/Time: 05/17/19 01:49 Chief Complaint: Cardiac Assessment Stated Complaint: SOB, AFIB ED Provider: Jocelyn Burroughs Discharge Problem: Atrial fibrillation with RVR, CHF (congestive heart failure) Patient Disposition: Admitted As Inpatient Discharge Instructions Interventions: ED Discharge Assessment Last Done: 05/17/19 01:49 Discharge Problem: CHF (congestive heart failure) Qualifiers: Heart failure type: unspecified Heart failure chronicity: unspecified Qualified Code(s): I50.9 - Heart failure, unspecified The scribe's documentation has been prepared under my direction and personally reviewed by me in its entirety. I confirm that the note above accurately reflects all work, treatment, procedures, and medical decision making performed by me.
[2019-05-17] MEDS ORDERED: METOPROLOL TARTRATE 1 MG/ML VIAL IV PRN (04:17)
--- NOTE | 2019-05-17 06:33 | XRay Report ---
XR chest 1V portable CLINICAL HISTORY: Chest pain. COMPARISON STUDY: Chest radiograph March 15, 2016. FINDINGS: . Median sternotomy wires are noted. There is no pneumothorax or pleural effusion. Minimal right midlung opacity is noted with mild interstitial thickening. Mild cardiomegaly is noted. Mediast inal contours are otherwise normal. IMPRESSION: Mild interstitial thickening with minimal right midlung opacity. This favors mild pulmon zeina edema. An infectious process could appear similar. Radiographic follow-up to ensure resolution is recommended. Electronically signed by: Tony Reynoso M.D. 05/17/2019 6:32 AM
[2019-05-17] MEDS: POTASSIUM CHLORIDE 10 MEQ TABCR PO SCH ×2 (07:57→20:34)
[2019-05-17] MEDS: CLOPIDOGREL BISULFATE 75 MG TAB PO SCH (07:57)
[2019-05-17] MEDS: PANTOprazole 40 MG TAB PO SCH (07:57)
[2019-05-17] MEDS: APIXABAN 5 MG TABLET PO SCH ×2 (07:57→20:34)
[2019-05-17] MEDS: FUROSEMIDE 20 MG in SYRINGE 0 ML IV SCH ×2 (07:57→16:04)
[2019-05-17] MEDS ORDERED: LEVALBUTEROL 1.25MG/0.5ML NEB NEB SCH (08:30)
[2019-05-17] MEDS ORDERED: METOPROLOL TARTRATE 100 MG TAB PO SCH (09:00)
[2019-05-17] MEDS: LEVALBUTEROL 1.25MG/0.5ML NEB NEB SCH ×2 (13:29→19:41)
--- NOTE | 2019-05-17 14:24 | Hospitalist Progress Note ---
Date of Service May 17, 2019 Assessment & Plan (1) Rapid atrial fibrillation: 73 y/o M Hx CAD, PVD, BPH, HTN, COPD, chronic back pain. The pt presents with a chief complaint of progressive SOB. He also noted that his HR was high and tends to increase with slight activity. He denies CP and denies a productive cough or fevers. His HR on arrival to the ER was ~ 130. He responded to additional metoprolol and his resting HR normalized. However, he continues to exhibit a rapid rate and SOB with minimal exertion. Initial labs are approximately at baseline. A CXR is consistent with vascular congestion. 1) Rapid AF - the pt responded to additional metoprolol and has a resting HR in the low 70s. This increases considerably with minimal exertion. This is likely compensation due to underlying volume overload so we will focus on diuresis rather than additional rate control. He will remain on Eliquis and BID metoprolol. Cardiology c/s pending (2) CHF (congestive heart failure): may have been the result of persistent rapid AF - ECHO noted for EF 55-60% no significant valvular issues Cardiology c/s pending (3) CAD (coronary artery disease): no evidence of ACS - cont Plavix (severe ASA allergy. He is not taking a statin at baseline Awaiting cardiology c/s (4) BPH (benign prostatic hyperplasia): continue home meds (5) HTN (hypertension): continue home meds (6) COPD (chronic obstructive pulmonary disease): continue home meds Xopenex scheduled for current wheezing, no need for steroids at present given quick resolution with single neb tx Subjective Pt is feeling overall improved. Nursing called to report wheezing that was heard from the hallway. Orders for xopenex given and nursing reports this has resolved. Pt feels breathing is easier as well. Tolerating PO without issue. No palpitations or heart racing. Pt denies fever, chest pain, abd pain, n/v/c/d, LE pain or swelling. Review of Systems Review of Systems: Pertinent positives and negatives reviewed in HPI--all others negative Physical Exam Constitutional: WD/WN, vitals as above Eyes: normal visual donohue by confrontation and + anicteric sclerae Neck: normal visual inspection and trachea midline Respiratory: normal respiratory effort, lungs clear to auscultation Cardiovascular: Rate/Rhythm: regular rate; + abnormal rhythm Gastrointestinal (Abdomen): Inspection/Auscultation: abdomen not distended Percussion/Palpation: abdomen soft; abdomen nontender Musculoskeletal: Head/Neck/Chest: normocephalic and head atraumatic negative for edema, peripheral pulses intact Skin: no rashes, warm and dry Neurologic: awake; not confused Speech / Cognition: normal speech Psychiatric: A+Ox3, euthymic affect Results & Data Vital Signs (Past 12 Hours) Vital Signs Temp Pulse Resp BP Pulse Ox 05/17/19 13:30 75 18 96 05/17/19 11:56 36.5 C 95 H 18 113/66 96 05/17/19 08:45 75 18 92 05/17/19 07:39 36.6 C 78 18 135/79 96 PG Care Time/CCT Total # of Minutes Spent Total Time Spent with Patient: Total time spent is greater than 50% in coordination of care (as documented) at patient's floor/unit and/or counseling patient: (1) CHF (congestive heart failure) Heart failure chronicity: unspecified Heart failure type: unspecified Qualified Code(s): I50.9 - Heart failure, unspecified
--- NOTE | 2019-05-17 19:06 | Cardiology Consultation ---
Date of Consultation May 17, 2019 Assessment & Plan (1) Atrial fibrillation with RVR: His heart rate is somewhat fast during atrial fibrillation, I would like to get a little bit better control although it is not essential. I would like to Anticoagulate for about 1 month then cardiovert, we could cardiovert now if needed but we would have to do a DELROY which he would prefer not to do and I would as well as long as we can control him medically for the next week or 2. (2) COPD (chronic obstructive pulmonary disease): He has significant bronchospasm, beta blockade may be exacerbating wheezing, I am going to try Diltiazem. I am going to start with a SR preparation since he received beta-blockade in the morning, that will also allow us to adjust the evening and daytime dose independently. (3) CHF (congestive heart failure): I believe he may have some element of congestive heart failure, possibly that developed over the last several weeks due to the atrial fibrillation. I would continue diuresis. History of Present Illness Reason for Consultation: Atrial fibrillation Attending Physician: Shobha Shultz, History of Present Illness This is a 72-year-old gentleman with a history of vascular disease for which he has had aortic surgery. He is limited by claudication. He had atrial fibrillation identified during his hospitalization for his aortic vascular surgery, that responded to Corvert. Cardiac catheterization showed severe disease and he therefore had coronary artery bypass surgery performed at [facility] on 08/25/2017 (3 with an internal mammary artery to the LAD, reverse saphenous vein graft to the obtuse marginal and posterior descending). He had postoperative atrial fibrillation and was placed on amiodarone and warfarin. From his description he had paroxysmal atrial fibrillation for about 4 days, was discharged on warfarin but tells me that he was always aware of the arrhythmia during his hospitalization and none until recently. His amiodarone was discontinued on 10/03/2017 and he remained on warfarin. With no recurrent atrial fibrillation warfarin was subsequently discontinued. 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 He was started on Eliquis and Bystolic was changed to Metoprolol tartrate 100 mg twice daily. Initially he was unaware of the arrhythmia, gradually he began to develop increasing dyspnea on exertion and ultimately was admitted with possible heart failure (although not edema), bronchospasm and a somewhat rapid heart rate. At the time of evaluation he is feeling better but he was audibly wheezing and with any activity was quite short of breath. No awareness of his heart rate in particular, although he notices that it is fast based on the monitoring. Allergies Allergy/AdvReac Type Severity Reaction Status Date / Time aspirin Allergy Severe ANAPHYLAXIS Verified 05/16/19 23:55 Home Medications Home Medications Medication Instructions Recorded Confirmed Type apixaban [Eliquis] 5 mg PO BID 05/16/19 05/16/19 History clonidine HCl 0.1 mg PO BID 05/16/19 05/16/19 History clopidogrel [Plavix] 75 mg PO DAILY 05/16/19 05/16/19 History dutasteride 0.5 mg PO DAILY 05/16/19 05/16/19 History metoprolol tartrate 100 mg PO BID 05/16/19 05/16/19 History pantoprazole 40 mg PO DAILY 05/16/19 05/16/19 History ranitidine HCl 300 mg PO HS 05/16/19 05/16/19 History terazosin 10 mg PO HS 05/16/19 05/16/19 History umeclidinium [Incruse Ellipta] 1 inh INHALATION DAILY 05/16/19 05/16/19 History fluticasone furoate-vilanterol 1 inh INHALATION DAILY 05/17/19 05/17/19 History [Breo Ellipta] oxycodone-acetaminophen 1 tab PO DIRECTED PRN 05/17/19 05/17/19 History Patient History Medical History Aortoiliac obstruction Atrial flutter by electrocardiogram Evisceration of bowel Iliac artery occlusion (Acute) Severe peripheral arterial disease Surgical History S/P triple vessel bypass Social History Preferred Language: Georgian Communication Ability: Effective Dairy Science Teacher Required: No Beliefs That Will Affect Care: None Current Living Situation: Other Feels Safe at Home: Yes Smoking Status: Former smoker Hx Alcohol Use: No Hx Substance Use: No Physical Exam Physical Exam: Constitutional: Alert, cooperative and in no distress. HEENT: Unremarkable Neck: No jugular venous distention, carotid pulses are irregular but otherwise normal and equal bilaterally without bruits. Pulmonary: Expiratory wheezing and prolonged expiration bilaterally. Cardiac: Irregular rhythm with no murmur, gallop or rub. Abdomen: Soft, nontender with normal bowel sounds. Extremities: No edema. Distal pulses intact. Neurologic: No focal findings. Gait is steady. Skin: No rash, ecchymoses or petechiae. Results & Data Vital Signs (Past 12 Hours) Vital Signs Temp Pulse Pulse Resp BP Pulse Ox 05/17/19 15:26 36.7 C 89 19 136/73 95 05/17/19 15:16 67 05/17/19 13:30 75 18 96 05/17/19 11:56 36.5 C 95 H 18 113/66 96 05/17/19 08:45 75 18 92 05/17/19 07:39 36.6 C 78 18 135/79 96 PG Care Time/CCT Total # of Minutes Spent Total Time Spent with Patient: Total time spent is greater than 50% in coordination of care (as documented) at patient's floor/unit and/or counseling patient: (1) CHF (congestive heart failure) Heart failure chronicity: unspecified Heart failure type: unspecified Qualified Code(s): I50.9 - Heart failure, unspecified
[2019-05-17] MEDS: OXYCODONE/ACETAMINOPHEN 10-325 TAB PO PRN (19:13)
[2019-05-17] MEDS: TERAZOSIN HCL 5 MG CAP PO SCH (20:34)
[2019-05-18] MEDS: LEVALBUTEROL 1.25MG/0.5ML NEB NEB SCH ×5 (00:09→19:23)
[2019-05-18] MEDS ORDERED: LORazepam 0.5 MG TAB PO ONE (04:35)
[2019-05-18] MEDS ORDERED: LORazepam 0.5 MG TAB ONE (04:39)
[2019-05-18 06:55] LABS: BUN Creatinine Ratio 15.6 (10-20); Calcium 8.3 mg/dl (8.5-10.1); Creatinine Clr Calc Pharmacy 55.5 ml/min; Est GFR (African American) 55.4; Est GFR (Non-African American) 47.8; Potassium 3.4 mmol/L (3.5-5.1)
[2019-05-18] MEDS: FLUTICASONE/VILANTEROL INHALER INH SCH (08:28)
[2019-05-18] MEDS: UMECLIDINIUM BROMIDE INH SCH (08:29)
[2019-05-18] MEDS: APIXABAN 5 MG TABLET PO SCH ×2 (08:30→21:39)
[2019-05-18] MEDS: FUROSEMIDE 20 MG in SYRINGE 0 ML IV SCH ×2 (08:31→17:39)
[2019-05-18] MEDS: POTASSIUM CHLORIDE 10 MEQ TABCR PO SCH ×2 (08:31→21:40)
[2019-05-18] MEDS: CLOPIDOGREL BISULFATE 75 MG TAB PO SCH (08:32)
[2019-05-18] MEDS: PANTOprazole 40 MG TAB PO SCH (08:33)
--- NOTE | 2019-05-18 09:17 | Cardiology Progress Note ---
Date of Service May 18, 2019 Assessment & Plan (1) Atrial fibrillation with RVR: His heart rate remians somewhat fast during atrial fibrillation, I would like to get a little bit better control since he will be here although it is not essential. I would still like to Anticoagulate for about 1 month then cardiovert, we could cardiovert now if needed but we would have to do a DELROY which he would prefer not to do and I would as well as long as we can control him medically for the next week or 2. (2) COPD (chronic obstructive pulmonary disease): He has significant bronchospasm, CHF may be exacerbating wheezing, I would continue diuresis. The calcium aden should not be causing this. He probably does not have a lot of beta-aden effect remaining, but he did receive it yesterday morning. (3) CHF (congestive heart failure): I believe he may have some element of congestive heart failure, possibly that developed over the last several weeks due to the atrial fibrillation. I would continue diuresis, I am going to place him on a fluid restriction and get daily weights which I do not think he is getting. Subjective He continues to have exertional shortness of breath, he is aware that he is wheezing and he is also aware that his heart rate is elevated based on the blood pressure measurement which lists his heart rate. He is not having a lot of symptoms of increased heart rate (such as palpitations). Physical Exam Physical Exam: Constitutional: Alert, cooperative and in no distress. Pulmonary: Expiratory wheezes bilaterally. Cardiac: Irregular rhythm with no murmur, gallop or rub. Abdomen: Soft, nontender with normal bowel sounds. Extremities: No edema. Skin: No rash, ecchymoses or petechiae. Results & Data Vital Signs (Past 12 Hours) Vital Signs Temp Pulse Resp BP Pulse Ox 05/18/19 03:47 36.4 C L 111 H 18 116/63 91 05/18/19 00:10 114 H 18 90 05/17/19 23:07 37.0 C 128 H 20 112/88 92 Diagnostic Findings An electrocardiogram on admission demonstrates atrial fibrillation with a heart rate of [address]-T abnormalities. Telemetry: Atrial fibrillation with a somewhat rapid overall heart rate An echocardiogram done May 17, 2019 shows normal left ventricular size with borderline left ventricular hypertrophy. PG Care Time/CCT Total # of Minutes Spent Total Time Spent with Patient: Total time spent is greater than 50% in coordination of care (as documented) at patient's floor/unit and/or counseling patient: (1) CHF (congestive heart failure) Heart failure chronicity: unspecified Heart failure type: unspecified Qualified Code(s): I50.9 - Heart failure, unspecified
[2019-05-18] MEDS: OXYCODONE/ACETAMINOPHEN 10-325 TAB PO PRN ×2 (10:16→21:46)
--- NOTE | 2019-05-18 12:14 | Hospitalist Progress Note ---
Date of Service May 18, 2019 Assessment & Plan (1) Rapid atrial fibrillation: 73 y/o M Hx CAD, PVD, BPH, HTN, COPD, chronic back pain. The pt presents with a chief complaint of progressive SOB. He also noted that his HR was high and tends to increase with slight activity. He denies CP and denies a productive cough or fevers. His HR on arrival to the ER was ~ 130. He responded to additional metoprolol and his resting HR normalized. However, he continues to exhibit a rapid rate and SOB with minimal exertion. Initial labs are approximately at baseline. A CXR is consistent with vascular congestion. Ongoing cardiology management Concern that metoprolol was contributing to wheezing, this was changed last night Still with wheezing today, but still likely with metoprolol in system Continue to monitor with carvedilol Ultimate plan is for cardioversion as outpt after 4 weeks of anticoagulation (2) CHF (congestive heart failure): may have been the result of persistent rapid AF - acute diastolic CHF ECHO noted for EF 55-60% no significant valvular issues Cardiology planning for ongoing diuresis (3) CAD (coronary artery disease): no evidence of ACS - cont Plavix (severe ASA allergy. He is not taking a statin at baseline (4) BPH (benign prostatic hyperplasia): continue home meds (5) HTN (hypertension): continue home meds (6) COPD (chronic obstructive pulmonary disease): continue home meds Xopenex scheduled for current wheezing (7) CKD (chronic kidney disease) stage 3, GFR 30-59 ml/min: Monitor with lasix use Subjective Pt has no palpitations or chest pain. He is very anxious about the elevations he is having in heart rate despite the fact that the elevations are fleeting and he has no sx with this. He does have some wheezing today and SOB with exertion. No SOB at rest. Tolerating PO without issue. Pt denies fever, abd pain, n/v/c/d, LE pain or swelling. Review of Systems Review of Systems: Pertinent positives and negatives reviewed in HPI--all others negative Physical Exam Constitutional: WD/WN, vitals as above Eyes: normal visual donohue by confrontation and + anicteric sclerae Neck: normal visual inspection and trachea midline Respiratory: normal respiratory effort; no respiratory distress Auscultation: + wheezes (heard from end of bed, diffuse, all donohue) Cardiovascular: Rate/Rhythm: regular rate; + abnormal rhythm Gastrointestinal (Abdomen): Inspection/Auscultation: abdomen not distended Percussion/Palpation: abdomen soft; abdomen nontender Musculoskeletal: Head/Neck/Chest: normocephalic and head atraumatic neg for LE edema Skin: no rashes, warm and dry Neurologic: awake; not confused Speech / Cognition: normal speech Psychiatric: A+Ox3, euthymic affect Results & Data Vital Signs (Past 12 Hours) Vital Signs Temp Pulse Resp BP Pulse Ox 05/18/19 11:36 36.6 C 125 H 18 135/76 91 05/18/19 07:55 36.6 C 120 H 22 143/79 H 95 05/18/19 03:47 36.4 C L 111 H 18 116/63 91 05/18/19 00:10 114 H 18 90 PG Care Time/CCT Total # of Minutes Spent Total Time Spent with Patient: Total time spent is greater than 50% in coordination of care (as documented) at patient's floor/unit and/or counseling patient: (1) CHF (congestive heart failure) Heart failure chronicity: unspecified Heart failure type: unspecified Qualified Code(s): I50.9 - Heart failure, unspecified
[2019-05-18] MEDS ORDERED: LORazepam 0.5 MG/1 ML VIAL IV STA (15:36)
[2019-05-18] MEDS: TERAZOSIN HCL 5 MG CAP PO SCH (21:38)
[2019-05-19] MEDS: LEVALBUTEROL 1.25MG/0.5ML NEB NEB SCH ×3 (00:04→13:23)
[2019-05-19] MEDS ORDERED: LORazepam 0.5 MG TAB PO STA (00:06)
[2019-05-19] MEDS: FLUTICASONE/VILANTEROL INHALER INH SCH (08:01)
[2019-05-19] MEDS: FUROSEMIDE 20 MG in SYRINGE 0 ML IV SCH (08:02)
[2019-05-19] MEDS: APIXABAN 5 MG TABLET PO SCH (08:02)
[2019-05-19] MEDS: POTASSIUM CHLORIDE 10 MEQ TABCR PO SCH (08:02)
[2019-05-19] MEDS: UMECLIDINIUM BROMIDE INH SCH (08:03)
[2019-05-19] MEDS: CLOPIDOGREL BISULFATE 75 MG TAB PO SCH (08:03)
[2019-05-19] MEDS: PANTOprazole 40 MG TAB PO SCH (08:03)
[2019-05-19 09:05] LABS: BUN Creatinine Ratio 12.8 (10-20); Calcium 8.6 mg/dl (8.5-10.1); Creatinine Clr Calc Pharmacy 60.5 ml/min; Est GFR (African American) 61.6; Est GFR (Non-African American) 53.1; Potassium 3.2 mmol/L (3.5-5.1)
[2019-05-19] MEDS ORDERED: DIGOXIN 250 MCG in SYRINGE 9 ML IV STA ×2 (09:42→09:46)
[2019-05-19] MEDS ORDERED: POTASSIUM CHLORIDE 10 MEQ TABCR PO STA (09:46)
[2019-05-19] MEDS ORDERED: DIGOXIN 0.125 MG TAB PO SCH (16:00)
--- NOTE | 2019-05-19 17:19 | Discharge Summary ---
Date of Service May 19, 2019 Admission HPI Per Admitting Provider 73 y/o M Hx CAD, PVD, BPH, HTN, COPD, chronic back pain. The pt presents with a chief complaint of progressive SOB. He also noted that his HR was high and tends to increase with slight activity. He denies CP and denies a productive cough or fevers. His HR on arrival to the ER was ~ 130. He responded to additional metoprolol and his resting HR normalized. However, he continues to exhibit a rapid rate and SOB with minimal exertion. Initial labs are approximately at baseline. A CXR is consistent with vascular congestion. PMH: 1) CAD - a cardiac cath in 2017 demonstrated severe, diffuse disease including 98% RCA stenosis. He was sent to [place] for a CABG 2) Chronic AF 3) COPD 4) PVD - BL aortofemoral bypass 5) HTN 6) BPH Surgical: 1) BL aortofemoral bypass 2) CABG - 3V 2016 Social: Quit smoking at age 70 - 50 PYH. Does not drink. Fromerly worked "spraying herbicides" Family: Noncontributory Principal Diagnosis Afib with RVR Discharge Exam Constitutional WD/WN, vitals as above Eyes normal visual donohue by confrontation and + anicteric sclerae Neck normal visual inspection and trachea midline Respiratory normal respiratory effort, lungs clear to auscultation normal respiratory effort; no respiratory distress Auscultation: + wheezes (heard from end of bed, diffuse, all donohue) Cardiovascular Rate/Rhythm: regular rate; + abnormal rhythm Gastrointestinal (Abdomen) Inspection/Auscultation: abdomen not distended Percussion/Palpation: abdomen soft; abdomen nontender Musculoskeletal Head/Neck/Chest: normocephalic and head atraumatic Skin no rashes, warm and dry Neurologic awake; not confused Speech / Cognition: normal speech Psychiatric A+Ox3, euthymic affect Discharge Data Allergies Allergy/AdvReac Type Severity Reaction Status Date / Time aspirin Allergy Severe ANAPHYLAXIS Verified 05/16/19 23:55 Consultations 05/17/19 01:07 ED Decision to Admit Stat 05/17/19 02:08 Consult Cardiology Routine Hospital Course (1) Rapid atrial fibrillation: Adjusted medications with Dr. Barcenas's help: - Dilatiazem CD 180mg PO daily - Digoxin 125 mcg daily - Continue anticoagulation with Eliquis. Ultimate plan is for cardioversion as outpt after 4 weeks of anticoagulation (2) CHF (congestive heart failure): May have been the result of persistent rapid AF - acute diastolic CHF ECHO noted for EF 55-60% no significant valvular issues Discharged on Lasix 20mg PO daily with potassium supplement with cardiology approval. (3) CAD (coronary artery disease): No evidence of ACS - cont Plavix (severe ASA allergy). He is not taking a statin at baseline. (4) BPH (benign prostatic hyperplasia): Continue home meds (5) HTN (hypertension): continue home meds (6) COPD (chronic obstructive pulmonary disease): continue home meds Xopenex scheduled for current wheezing (7) CKD (chronic kidney disease) stage 3, GFR 30-59 ml/min: Monitor with lasix use Total Time Total Time Spent Total Time Spent (In Minutes): 35 Total Time Includes: Examination of the Patient, Discharge Planning and Communication With Other Providers Discharge Plan Discharge Items Patient Disposition: Home - Self-Care Reason For Visit: AF/RVR, CHF Discharge Diagnosis: Atrial fibrillation with a fast rate Discharge Goals: Decrease discomfort, Improve disease control and Improve function Activity: Resume your previous activity Non-emergency contact: Primary Care Provider and Hydraulic Punch Press Operator Call non-emergency contact if: your symptoms worsen and your pain is not controlled Follow-up/Referrals: Zan Barcenas MD [Physician] - Marcio Bravo M.D. [Primary Care Provider] - Diet: Heart Healthy and Low Sodium (2gm) Addtl Provider Instructions: Mr. Reyes, You were admitted to the hospital with a fast heart rate that was causing you to get short of breath with walking. With Dr. Barcenas's help, we were able to lower your heart rate. You felt better while walking around as well. We are discharging you on two medications to help slow your heart rate down. We are sending these scripts to your pharmacy in [place]. Please keep taking your Eliquis as well to thin your blood. You may have a cardioversion with Dr. Barcenas next month. Prescriptions: New digoxin 125 mcg Tablet 0.125 mg PO DAILY@1600 Qty: 30 RF: 0 diltiazem HCl 60 mg Capsule,Extended Release 12 Hr 180 mg PO DAILY Qty: 30 RF: 0 potassium chloride [Klor-Con M10] 10 mEq Tablet,Er Particles/Crystals 10 meq PO BID Qty: 60 RF: 0 furosemide 20 mg tablet 20 mg PO DAILY Qty: 30 RF: 0 lorazepam [Ativan] 0.5 mg tablet 0.5 mg PO DAILY PRN (Reason: anxiety) Qty: 5 RF: 0 Continued dutasteride 0.5 mg Capsule 0.5 mg PO DAILY RF: 0 clopidogrel [Plavix] 75 mg Tablet 75 mg PO DAILY RF: 0 terazosin 10 mg Capsule 10 mg PO HS RF: 0 ranitidine HCl 300 mg Tablet 300 mg PO HS RF: 0 pantoprazole 40 mg Tablet,Delayed Release (Dr/Ec) 40 mg PO DAILY RF: 0 Eliquis 5 mg Tablet 5 mg PO BID RF: 0 Incruse Ellipta 62.5 mcg/actuation Blister With Device 1 inh INHALATION DAILY RF: 0 Breo Ellipta 100-25 mcg/dose Blister With Device 1 inh INHALATION DAILY RF: 0 oxycodone-acetaminophen 10-325 mg Tablet 1 tab PO DIRECTED PRN (Reason: Pain) RF: 0 Discontinued metoprolol tartrate 100 mg Tablet 100 mg PO BID RF: 0 clonidine HCl 0.1 mg Tablet 0.1 mg PO BID RF: 0 Stand-Alone Forms: [facility] [employer] [facility]/Other Patient Handouts: Apixaban Oral tablet, Heart Failure Discharge Orders: Discharge Order (Routine); Ordered 05/19/19 Ordered By: Denis Canas Admission Data Admit Date/Time: 05/17/19 01:18 Attending Provider: Denis Canas Admit Provider: Miky Robles Primary Care Provider: Marcio Bravo Other Providers: Zan Barcenas ; Denis Canas Service: Telemetry Other Interventions: Discharge Summary Assessment (RN) Last Done: 05/19/19 15:31
--- NOTE | 2019-05-19 18:24 | Cardiology Progress Note ---
Date of Service May 19, 2019 Assessment & Plan (1) Atrial fibrillation with RVR: His heart rate remians somewhat fast during atrial fibrillation, I would like to get better controlled by do not think it is essential. I am going to give him an intravenous dose of digoxin and add a small oral dose however I think it is still reasonable to send him home today. I will be scheduling cardioversion next week and having a slightly elevated heart rate for that amount of time (especially since he is asymptomatic) should not be an issue. (2) COPD (chronic obstructive pulmonary disease): He has significant bronchospasm, CHF may be exacerbating wheezing. The calcium aden should not be causing this. He probably does not have a lot of beta-aden effect remaining, and his lungs have improved. I would leave him off of beta-blockade. (3) CHF (congestive heart failure): I believe he may have some element of congestive heart failure, possibly that developed over the last several weeks due to the atrial fibrillation. We need to try to maintain his current weight. Subjective Today he is feeling much better, he feels that he is approaching his baseline. He does not feel his increased heart rate however he notices it on telemetry and it worrisome. He was ambulating in the borrero and although his heart rate went up he felt well doing it. Physical Exam Physical Exam: Constitutional: Alert, cooperative and in no distress. HEENT: Unremarkable Neck: No jugular venous distention, carotid pulses are irregular but otherwise normal and equal bilaterally without bruits. Pulmonary: Clear to auscultation bilaterally. Cardiac: Irregular rhythm with no murmur, gallop or rub. Abdomen: Soft, nontender with normal bowel sounds. Extremities: No edema. Distal pulses intact. Neurologic: No focal findings. Gait is steady. Skin: No rash, ecchymoses or petechiae. Results & Data Vital Signs (Past 12 Hours) Vital Signs Temp Pulse Pulse Resp BP BP Pulse Ox 05/19/19 15:31 36.5 C 111 H 16 147/78 H 107/68 93 05/19/19 15:10 98 H 05/19/19 15:05 36.5 C 111 H 16 107/68 93 05/19/19 13:23 103 H 20 95 05/19/19 11:43 36.5 C 112 H 18 130/73 93 05/19/19 10:51 95 H 05/19/19 07:40 36.4 C L 130 H 22 129/70 95 05/19/19 07:07 114 H 18 93 Diagnostic Findings Telemetry: Atrial fibrillation with a rapid heart rate, especially with activity. At rest his heart rate is somewhat rapid but acceptable. PG Care Time/CCT Total # of Minutes Spent Total Time Spent with Patient: Total time spent is greater than 50% in coordination of care (as documented) at patient's floor/unit and/or counseling patient: (1) CHF (congestive heart failure) Heart failure chronicity: unspecified Heart failure type: unspecified Qualified Code(s): I50.9 - Heart failure, unspecified
== END 2019-05-19 15:50 | disposition home or self-care (01) | DRG 308 ==
LOC: ED 23:23 → SUATTDRO 05-17 01:18 → 2S 05-17 01:18

== ENCOUNTER 2019-06-11 18:09 | Observation (INO) ==
--- NOTE | 2019-06-11 18:49 | XRay Report ---
XR chest 1V portable CLINICAL HISTORY: Chest Pain COMPARISON STUDY: Chest radiograph May 16, 2019. FINDINGS: Median sternotomy wires are noted as well as mediastinal clips. There is moderate cardiomeg bhavya. No pneumothorax or pleural effusion is noted. Interstitial thickening has slightly improved when compared to exam of May 16, 2019. No consolidation is identified. IMPRESSION: 1. Interval decrease in interstitial thickening since chest radiograph of May 16, 2019. Pulmonary vascular congestion without overt edema. 2. Moderate cardiomegaly. Electronically signed by: Tony Reynoso M.D. 06/11/2019 6:48 PM
[2019-06-11 19:00] LABS: Basophils # (auto) 0.01 K/uL (0-0.2); Basophils % (auto) 0.1 %; Eosinophils # (auto) 0.15 K/uL (0-0.5); Eosinophils % (auto) 1.7 %; Hemoglobin 12.8 g/dL (14.0-18.0); Immature Granulocytes # (auto) 0.02 K/uL (0.00-0.02); Immature Granulocytes % (auto) 0.2 %; Lymphocytes # (auto) 1.01 K/uL (1.2-3.4); Lymphocytes % (auto) 11.8 %; Mean Corpuscular Hemoglobin 31.4 pg (25-34); Mean Corpuscular Hgb Conc 33.7 g/dL (32-36); Mean Corpuscular Volume 93.4 fL (80-100); Mean Platelet Volume 9.9 fL (7.4-10.4); Monocytes # (auto) 0.52 K/uL (0.11-0.59); Monocytes % (auto) 6.1 %; Neutrophils # (auto) 6.88 K/uL (1.4-6.5); Neutrophils % (auto) 80.1 %; Platelet Count 162 K/uL (130-400); RDW Coefficient of Variation 13.8 % (11.5-14.5); RDW Standard Deviation 47.4 fL (36.4-46.3); Red Blood Count 4.07 M/uL (4.7-6.1); White Blood Count 8.59 K/uL (4.8-10.8)
[2019-06-11 19:19] LABS: Alanine Aminotransferase 21 U/L (12-78); Albumin Level 3.7 gm/dl (3.4-5.0); Aspartate Aminotransferase 15 U/L (15-37); BUN Creatinine Ratio 14.1 (10-20); Blood Urea Nitrogen 23 mg/dl (7-18); Calcium 8.8 mg/dl (8.5-10.1); Carbon Dioxide 27 mmol/L (21-32); Chloride 111 mmol/L (98-107); Est GFR (African American) 48.8; Est GFR (Non-African American) 42.1; Glucose 94 mg/dl (70-99); Lipase 89 U/L (73-393); Magnesium 1.8 mg/dl (1.8-2.4); Potassium 4.2 mmol/L (3.5-5.1); Sodium 143 mmol/L (136-145)
[2019-06-11 19:30] LABS: Alkaline Phosphatase 66 U/L (45-117); Bilirubin,Total 0.4 mg/dl (0.2-1); Globulin 3.7 gm/dl (2.5-4.0); Phosphorus 2.8 mg/dl (2.5-4.9); Thyroid Stimulating Hormone 0.664 uIu/ml (0.300-4.500); Total Protein 7.4 gm/dl (6.4-8.2); Troponin I < 0.015 ng/ml (0-0.045)
[2019-06-11] MEDS ORDERED: OXYCODONE/ACETAMINOPHEN 5mg/325mg TAB PO PRN (21:16)
[2019-06-11] MEDS ORDERED: ALBUTEROL 0.083% NEBU SOLN 3 ML VIAL NEB PRN (21:16)
[2019-06-11] MEDS ORDERED: ACETAMINOPHEN 325 MG TAB PO PRN (21:16)
--- NOTE | 2019-06-11 21:57 | History & Physical Report ---
Date of Service June 11, 2019 Assessment & Plan (1) Symptomatic bradycardia: S/p cardioversion 10 days prior. Suspect just needs medication adjustment. I will hold Cardizem and Bystolic and await cardiology input. Obs tele Present on Admission?: Yes (2) COPD (chronic obstructive pulmonary disease): No exacerbation continue Incruse Ellipta Added prn albuterol nebs. (3) HTN (hypertension): Continue Clonidine and Lasix. (4) BPH (benign prostatic hyperplasia): Continue Avodart and terazosin. (5) CAD (coronary artery disease): Trop normal. (6) CKD (chronic kidney disease) stage 3, GFR 30-59 ml/min: give gentle fluids overnight. Creat 1.6, but was 1.3 as of 3 weeks prior. (7) Chronic low back pain: Continue prn Percocet as he uses at home. (8) Atrial fibrillation and flutter: Cardioverted to sinus continuing with Eliquis DVT prophylaxis covered by Eliquis. History of Present Illness 73 y/o male presented to the ED after noted that he pulse at home was in the 30's. He had noticed today that at times, he felt lightheaded, but did not pass out. He declines having chest pain, SOB, cough, F/C, N/V/D. He reports that 10 days prior he underwent cardioversion for A-fib/flutter. He reports currently taking Bystolic 10mg daily (this med is not on his medication list), Cardizem CD 240mg, Clonidine (was restarted this week), and Lasix daily. Primary Care Provider: Marcio Bravo M.D. Allergies Allergy/AdvReac Type Severity Reaction Status Date / Time aspirin Allergy Severe ANAPHYLAXIS Verified 06/11/19 19:31 Home Medications Home Medications Medication Instructions Recorded Confirmed Type Eliquis 5 mg PO BID 05/16/19 06/11/19 History Incruse Ellipta 1 inh INHALATION DAILY PRN 05/16/19 06/11/19 History clopidogrel [Plavix] 75 mg PO QAM 05/16/19 06/11/19 History dutasteride 0.5 mg PO QPM 05/16/19 06/11/19 History pantoprazole 40 mg PO QAM 05/16/19 06/11/19 History ranitidine HCl 300 mg PO HS 05/16/19 06/11/19 History terazosin 10 mg PO HS 05/16/19 06/11/19 History Breo Ellipta 1 inh INHALATION QAM 05/17/19 06/11/19 History oxycodone-acetaminophen 1 tab PO DIRECTED PRN 05/17/19 06/11/19 History potassium chloride [Klor-Con M10] 10 meq PO BID #60 tab 05/19/19 06/11/19 Rx furosemide 20 mg PO QAM 05/28/19 06/11/19 History diltiazem HCl 240 mg PO QAM #30 cap 06/01/19 06/11/19 Rx clonidine HCl [Catapres] 0.1 mg PO BID 06/11/19 06/11/19 History Past Med/Surg History Medical History Severe peripheral arterial disease Atrial fibrillation dx 2017 - on eliquis BPH (benign prostatic hyperplasia) COPD (chronic obstructive pulmonary disease) Chronic back pain Chronic kidney disease, stage 2 (mild) PCP monitoring GERD (gastroesophageal reflux disease) [place] (hard of hearing) HTN (hypertension) Osteoarthritis Surgical History History of appendectomy History of cardiac cath 2017 - [facility] - CP --> CABG History of cholecystectomy History of colonoscopy History of coronary artery bypass graft 2017 - 3 vessels - [facility] - Follows w/ Dr. Mckeon History of esophagogastroduodenoscopy (EGD) History of tooth extraction S/P aortobifemoral bypass surgery 2016 S/P femoral-femoral bypass surgery Status post percutaneous transluminal angioplasty ([employer]) left iliac Family History Other Family history of diabetes mellitus Social History Preferred Language: Kinyarwanda Communication Ability: Effective Pin Chaser Required: No Beliefs That Will Affect Care: None marital status: / Current Living Situation: Spouse Feels Safe at Home: Yes Smoking Status: Former smoker Second Hand Exposure: Yes (as a child) ; Hx Alcohol Use: No Hx Substance Use: No Review of Systems Review of Systems: NEEDS EDITING Constitutional- no fever; no weight loss Eyes- no acute visual changes ENT- no sinus drainage; no pharyngitis Pulmonary- no cough, no wheezing, no shortness of breath Cardiac- no chest pain, no palpitations, no orthopnea, no dependent edema, + intermittent lightheadedness without syncope. GI- no nausea, no vomiting, no diarrhea, no melena, no hematochezia - no dysuria, no hematuria Musculoskeletal- +Chronic low back pain. Derm- no rashes, no new skin lesions, no changing skin lesions Hematologic- no unusual bruising, no unusual bleeding Lymphatics- no adenopathy Endocrine- no polyuria or polydipsia; no heat or cold intolerance Neuro- no headaches, no focal neurologic symptoms Psych- no anxiety, no depression Physical Exam Physical Exam: NEEDS EDITING General- adult male, A,A&O x3, NAD Head- atraumatic Eyes- PERRL, EOMI, anicteric ENT- oropharynx clear Neck- supple, no JVD, no adenopathy, no thyromegaly. Lungs- clear to auscultation and percussion, No rales, rhonchi, or wheezes. Heart- Bradycardic, regular rhythm; no murmur, no gallop, no rub appreciated Abdomen- normal bowel sounds, soft, nontender. Extremities- no pretibial edema, no calf tenderness; peripheral pulses intact Neuro- alert, oriented x 3; PERRL, EOMI; no facial palsy; no dysarthria, Non- focal. CN's II-XII grossly intact. Skin- warm & dry Results & Data Vital Signs (Past 12 Hours) Vital Signs Temp Pulse Resp BP Pulse Ox 06/11/19 21:01 49 L 16 175/72 H 96 06/11/19 20:00 52 L 16 128/72 97 06/11/19 18:11 36.5 C 51 L 20 126/58 L 96 Laboratory Results Laboratory Results WBC 8.59 K/uL (4.8-10.8) 06/11/19 18:46 RBC 4.07 M/uL (4.7-6.1) L 06/11/19 18:46 Hgb 12.8 g/dL (14.0-18.0) L 06/11/19 18:46 Hct 38.0 % (42-52) L 06/11/19 18:46 MCV 93.4 fL (80-100) 06/11/19 18:46 MCH 31.4 pg (25-34) 06/11/19 18:46 MCHC 33.7 g/dL (32-36) 06/11/19 18:46 RDW Std Deviation 47.4 fL (36.4-46.3) H 06/11/19 18:46 RDW Coeff of [place] 13.8 % (11.5-14.5) 06/11/19 18:46 Plt Count 162 K/uL (130-400) 06/11/19 18:46 MPV 9.9 fL (7.4-10.4) 06/11/19 18:46 Immature Gran % (Auto) 0.2 % 06/11/19 18:46 Neut % (Auto) 80.1 % 06/11/19 18:46 Lymph % (Auto) 11.8 % 06/11/19 18:46 [place] % (Auto) 6.1 % 06/11/19 18:46 Eos % (Auto) 1.7 % 06/11/19 18:46 Baso % (Auto) 0.1 % 06/11/19 18:46 Immature Gran # (Auto) 0.02 K/uL (0.00-0.02) 06/11/19 18:46 Neut # (Auto) 6.88 K/uL (1.4-6.5) H 06/11/19 18:46 Lymph # (Auto) 1.01 K/uL (1.2-3.4) L 06/11/19 18:46 [place] # (Auto) 0.52 K/uL (0.11-0.59) 06/11/19 18:46 Eos # (Auto) 0.15 K/uL (0-0.5) 06/11/19 18:46 Baso # (Auto) 0.01 K/uL (0-0.2) 06/11/19 18:46 Sodium 143 mmol/L (136-145) 06/11/19 18:46 Potassium 4.2 mmol/L (3.5-5.1) 06/11/19 18:46 Chloride 111 mmol/L (98-107) H 06/11/19 18:46 Carbon Dioxide 27 mmol/L (21-32) 06/11/19 18:46 Anion Gap 5.0 (3-11) 06/11/19 18:46 BUN 23 mg/dl (7-18) H 06/11/19 18:46 Creatinine 1.60 mg/dl (0.6-1.4) H 06/11/19 18:46 Est Cr Clr Drug Dosing 50.0 ml/min 06/11/19 18:46 Est GFR ( Amer) 48.8 06/11/19 18:46 Est GFR (Non-Af Amer) 42.1 06/11/19 18:46 BUN/Creatinine Ratio 14.1 (10-20) 06/11/19 18:46 Glucose 94 mg/dl (70-99) 06/11/19 18:46 Calcium 8.8 mg/dl (8.5-10.1) 06/11/19 18:46 Phosphorus 2.8 mg/dl (2.5-4.9) 06/11/19 18:46 Magnesium 1.8 mg/dl (1.8-2.4) 06/11/19 18:46 Total Bilirubin 0.4 mg/dl (0.2-1) 06/11/19 18:46 AST 15 U/L (15-37) 06/11/19 18:46 ALT 21 U/L (12-78) 06/11/19 18:46 Alkaline Phosphatase 66 U/L (45-117) 06/11/19 18:46 Troponin I < 0.015 ng/ml (0-0.045) 06/11/19 18:46 Total Protein 7.4 gm/dl (6.4-8.2) 06/11/19 18:46 Albumin 3.7 gm/dl (3.4-5.0) 06/11/19 18:46 Globulin 3.7 gm/dl (2.5-4.0) 06/11/19 18:46 Albumin/Globulin Ratio 1.0 (0.9-2) 06/11/19 18:46 Lipase 89 U/L (73-393) 06/11/19 18:46 TSH 0.664 uIu/ml (0.300-4.500) 06/11/19 18:46 Digoxin 0.8 ng/ml (0.8-2.0) 06/11/19 18:46 Diagnostic Findings [facility] [place] [phone] XRay Report Patient: MELISSA HA Date: 06/11/19 MR#: [id number]: [address] Acct ID:[id number]: [facility] Zip[facility] [place] [address] Age: 73Location: ED Sex: M Room/Bed: Att Phy:Diagnosis: HEART RATE KEEPS DROPPING Yudy Phy: Marcio Bravo M.D.Service Date: 06/11/19 Fam Phy:Interpreting Phy: Tony Reynoso MD Admit Phy: Ordering Phy: Edwin Waterman M.D. cc: ~ XR chest 1V portable CLINICAL HISTORY: Chest Pain COMPARISON STUDY: Chest radiograph May 16, 2019. FINDINGS: Median sternotomy wires are noted as well as mediastinal clips. There is moderate cardiomegaly. No pneumothorax or pleural effusion is noted. Interstitial thickening has slightly improved when compared to exam of May 16, 2019. No consolidation is identified. IMPRESSION: 1. Interval decrease in interstitial thickening since chest radiograph of May 16, 2019. Pulmonary vascular congestion without overt edema. 2. Moderate cardiomegaly. Electronically signed by: Tony Reynoso M.D. 06/11/2019 6:48 PM Dictated: 06/11/191845 Transcribed: 06/11/191845 Code Status & VTE Plan VTE Prophylaxis Plan VTE Prophylaxis will be ordered: No PG Care Time/CCT Total # of Minutes Spent Total Time Spent: 60 Total Time Spent with Patient: Total time spent is greater than 50% in coordination of care (as documented) at patient's floor/unit and/or counseling patient:
[2019-06-11] MEDS ORDERED: ZOLPIDEM TARTRATE 5 MG TAB PO PRN (22:48)
[2019-06-11] MEDS: LACTATED RINGER'S 1,000 ML IV SCH (23:04)
[2019-06-12] MEDS: Dutasteride 0.5 MG - ORDER AWAITING ACTION SCH ×3 (00:09→16:52)
--- NOTE | 2019-06-12 03:19 | Emergency Department Note ---
Entered by Flores Murphy acting as a scribe for History of Present Illness General Chief complaint: Bradycardia Stated complaint: HEART RATE KEEPS DROPPING Time Seen by Provider: 06/11/19 18:30 Source: patient History of Present Illness Pain Consistency: no now resolved Maximum Pain Intensity: 7 Associated symptoms: + other (Positive dizziness; Positive lightheaded; Negative diarrhea; Negative congestion); no cough and no nausea/vomiting The patient, who is a 73 year old male with a medical history of atrial fibrillation, CHF and hypertension, presents to the Emergency Room with complaints of a low heart rate that occurred prior to arrival. The patient states that he was feeling lightheaded and dizzy. The patient expresses that he observed that his heart rate was 30 bpm which is unusual for him. The patient states that his baseline heart rate is 60 bpm. The patient expresses that he has not accidentally misused his medication but admits that his symptoms started four hours after taking his medication. The patient reports having a change in medications in result to a recent diagnosis. The patient admits that he has been eating and drinking fine. The patient denies nausea, vomiting, diarrhea, cough or congestion. Home Medications Home Medications Medication Instructions Recorded Confirmed Type Eliquis 5 mg PO BID 05/16/19 06/11/19 History Incruse Ellipta 1 inh INHALATION DAILY PRN 05/16/19 06/11/19 History clopidogrel [Plavix] 75 mg PO QAM 05/16/19 06/11/19 History dutasteride 0.5 mg PO QPM 05/16/19 06/11/19 History pantoprazole 40 mg PO QAM 05/16/19 06/11/19 History ranitidine HCl 300 mg PO HS 05/16/19 06/11/19 History terazosin 10 mg PO HS 05/16/19 06/11/19 History Breo Ellipta 1 inh INHALATION QAM 05/17/19 06/11/19 History oxycodone-acetaminophen 1 tab PO DIRECTED PRN 05/17/19 06/11/19 History potassium chloride [Klor-Con M10] 10 meq PO BID #60 tab 05/19/19 06/11/19 Rx furosemide 20 mg PO QAM 05/28/19 06/11/19 History diltiazem HCl 240 mg PO QAM #30 cap 06/01/19 06/11/19 Rx clonidine HCl [Catapres] 0.1 mg PO BID 06/11/19 06/11/19 History nebivolol [Bystolic] 10 mg PO DAILY 06/11/19 06/11/19 History Allergies Allergy/AdvReac Type Severity Reaction Status Date / Time aspirin Allergy Severe ANAPHYLAXIS Verified 06/11/19 19:31 Past Med/Surg History Medical History Severe peripheral arterial disease Atrial fibrillation dx 2017 - on eliquis BPH (benign prostatic hyperplasia) COPD (chronic obstructive pulmonary disease) Chronic back pain Chronic kidney disease, stage 2 (mild) PCP monitoring GERD (gastroesophageal reflux disease) [place] (hard of hearing) HTN (hypertension) Osteoarthritis Surgical History History of appendectomy History of cardiac cath 2017 - [facility] - CP --> CABG History of cholecystectomy History of colonoscopy History of coronary artery bypass graft 2017 - 3 vessels - Julian Bennett - Follows w/ Dr. Mckeon History of esophagogastroduodenoscopy (EGD) History of tooth extraction S/P aortobifemoral bypass surgery 2016 S/P femoral-femoral bypass surgery Status post percutaneous transluminal angioplasty (COORDINATOR OF ONLINE PROGRAMS) left iliac Family History Other Family history of diabetes mellitus Social History Preferred Language: Macanese Communication Ability: Effective Rental Sales Associate Required: No Beliefs That Will Affect Care: None marital status: / Current Living Situation: Spouse Other Information That Helps Us Care for You: No Feels Safe at Home: Yes Safety Concerns: Feels Safe At This Time Smoking Status: Former smoker Second Hand Exposure: Yes (as a child) ; Hx Alcohol Use: No Hx Substance Use: No Review of Systems See HPI for pertinent positives & negatives. and A total of 10 systems reviewed and were otherwise negative Physical Exam Vital Signs Vital Signs - 24 hr 06/11/19 18:11 06/11/19 20:00 06/11/19 21:01 Temperature 36.5 C Temperature Source Oral Sepsis Recent Fever Within 48 Hours No Sepsis New/Unexplained Change in Mental Status No Sepsis Action Taken by Nursing No Action Required Pulse Rate 51 L 52 L 49 L Pulse Rhythm Regular Pulse Strength Normal Respiratory Rate 20 16 16 Respiratory Effort / Characteristics Non-Labored Spontaneous Respiratory Depth Normal Respiratory Pattern Regular Blood Pressure 126/58 L 128/72 175/72 H Blood Pressure Mean 80 90 106 Blood Pressure Position Sitting Pulse Oximetry 96 97 96 Oxygen Delivery Method Room Air Room Air Room Air GENERAL: Awake, alert, well-appearing, in no distress HENT: Normocephalic, atraumatic. Oropharynx with dry mucous membranes and otherwise unremarkable. EYES: Normal conjunctiva. Sclera non-icteric. NECK: Supple. No nuchal rigidity. FROM. No JVD. RESPIRATORY: Scant intermittent wheeze, otherwise clear. CARDIAC: Bradycardic rate, normal rhythm. Extremities warm and well perfused. Pulses equal. ABDOMEN: Soft, non-distended. No tenderness to palpation. No rebound or guarding. No masses. RECTAL: Deferred. MUSCULOSKELETAL: Chest examination reveals no tenderness. The back is symmetrical on inspection without obvious abnormality. There is no CVA tend erness to palpation. No joint edema. LOWER EXTREMITIES: Calves are equal size bilaterally and non-tender. No edema. No discoloration. 5/5 strength and SILT x4 extremities. NEURO: Normal sensorium. No sensory or motor deficits noted. SKIN: No rash or jaundice noted. Cerebellar function intact, including finger to nose, alternating palms, heel to nath. Course 1911: Past medical records reviewed. The patient was evaluated in room C9. A c omplete history and physical exam was performed. 2039: I reviewed the patient's case with Dr. Maldonado, [facility] Hospitalist. He will evaluate the patient for further management. Consultations Consultation #1: I reviewed the patient's case with Dr. Maldonado, [facility] Hospitalist. He will evaluate the patient for further management. Time: 20:40 Administered Medications Lactated Ringer's (Lr) 1,000 mls @ 100 mls/hr IV .Q10H JOSSELYN Stop: 07/11/19 22:09 Last Admin: 06/11/19 23:04 Dose: 100 mls/hr Documented by: [id number] Miscellaneous (Order Awaiting Action) 1 ea N/A QS JOSSELYN Stop: 07/12/19 00:00 Last Admin: 06/12/19 00:09 Dose: Not Given Documented by: [id number] Miscellaneous (Order Awaiting Action) 1 ea N/A QS JOSSELYN Stop: 07/12/19 00:00 Last Admin: 06/12/19 00:09 Dose: Not Given Documented by: [id number] Oxycodone/Acetaminophen (Percocet 5mg/325mg) 1 tab PO Q4H PRN PRN Reason: Moderate Pain Stop: 06/25/19 21:15 Last Admin: 06/11/19 23:03 Dose: 1 tab Documented by: [id number] Ranitidine HCl (Zantac) 300 mg PO HS JOSSELYN Stop: 07/11/19 22:02 Last Admin: 06/11/19 23:03 Dose: 300 mg Documented by: [id number] Zolpidem Tartrate (Ambien) 5 mg PO HS PRN PRN Reason: Sleep Stop: 07/11/19 22:47 Last Admin: 06/11/19 23:03 Dose: 5 mg Documented by: [id number] Medical Decision Making Differential Diagnosis Differential diagnosis includes: benign positional vertigo, dehydration, hypovolemia, anemia, tumor, infection, hypoglycemia, electrolyte abnormalities, cardiac sources, intracerebral event, toxicologic, neurologic, as well as others were entertained. Medical Records Attestation: I reviewed the patient's medical records. Home Medications Current Medication List: was personally reviewed by me Laboratory Data Attestation: I reviewed the patient's lab results. Result diagrams: 06/11/19 18:46 06/11/19 18:46 Lab Results 06/11/19 06/11/19 06/11/19 Range/Units 18:46 18:46 18:46 WBC 8.59 (4.8-10.8) K/uL RBC 4.07 L (4.7-6.1) M/uL Hgb 12.8 L (14.0-18.0) g/dL Hct 38.0 L (42-52) % MCV 93.4 (80-100) fL MCH 31.4 (25-34) pg MCHC 33.7 (32-36) g/dL RDW Std Deviation 47.4 H (36.4-46.3) fL RDW Coeff of [place] 13.8 (11.5-14.5) % Plt Count 162 (130-400) K/uL MPV 9.9 (7.4-10.4) fL Immature Gran % (Auto) 0.2 % Neut % (Auto) 80.1 % Lymph % (Auto) 11.8 % [place] % (Auto) 6.1 % Eos % (Auto) 1.7 % Baso % (Auto) 0.1 % Immature Gran # (Auto) 0.02 (0.00-0.02) K/uL Neut # (Auto) 6.88 H (1.4-6.5) K/uL Lymph # (Auto) 1.01 L (1.2-3.4) K/uL [place] # (Auto) 0.52 (0.11-0.59) K/uL Eos # (Auto) 0.15 (0-0.5) K/uL Baso # (Auto) 0.01 (0-0.2) K/uL Sodium 143 (136-145) mmol/L Potassium 4.2 (3.5-5.1) mmol/L Chloride 111 H (98-107) mmol/L Carbon Dioxide 27 (21-32) mmol/L Anion Gap 5.0 (3-11) BUN 23 H (7-18) mg/dl Creatinine 1.60 H (0.6-1.4) mg/dl Est Cr Clr Drug Dosing 50.0 ml/min Est GFR ( Amer) 48.8 Est GFR (Non-Af Amer) 42.1 BUN/Creatinine Ratio 14.1 (10-20) Glucose 94 (70-99) mg/dl Calcium 8.8 (8.5-10.1) mg/dl Phosphorus 2.8 (2.5-4.9) mg/dl Magnesium 1.8 (1.8-2.4) mg/dl Total Bilirubin 0.4 (0.2-1) mg/dl AST 15 (15-37) U/L ALT 21 (12-78) U/L Alkaline Phosphatase 66 (45-117) U/L Troponin I < 0.015 (0-0.045) ng/ml Total Protein 7.4 (6.4-8.2) gm/dl Albumin 3.7 (3.4-5.0) gm/dl Globulin 3.7 (2.5-4.0) gm/dl Albumin/Globulin Ratio 1.0 (0.9-2) Lipase 89 (73-393) U/L TSH 0.664 (0.300-4.500) uIu/ml Digoxin 0.8 (0.8-2.0) ng/ml Imaging Data Radiologist's Impression: Radiology results as stated below per my review and the radiologist's interpretation: XR chest 1V portable CLINICAL HISTORY: Chest Pain COMPARISON STUDY: Chest radiograph May 16, 2019. FINDINGS: Median sternotomy wires are noted as well as mediastinal clips. There is moderate cardiomegaly. No pneumothorax or pleural effusion is noted. Interstitial thickening has slightly improved when compared to exam of May 16, 2019. No consolidation is identified. IMPRESSION: 1. Interval decrease in interstitial thickening since chest radiograph of May 16, 2019. Pulmonary vascular congestion without overt edema. 2. Moderate cardiomegaly. Electronically signed by: Tony Reynoso M.D. 06/11/2019 6:48 PM ECG Data Attestation: I personally reviewed and interpreted this ECG as follows: Indication: bradycardia Rate (beats per minute): 44 Rhythm: sinus bradycardia Findings: + other (Normal axis) and + 1st degree AV block; no ectopy Blood Pressure Blood Pressure Findings: Elevated blood pressure Blood Pressure Disposition: further management by hospitalist MDM Narrative The patient is a pleasant 73 y/o gentleman with a pmhx of afib on Eliquis s/p cardioversion, COPD, HTN, HLD, CKD who presents to the emergency department with dizziness and report of slow heart rates as low as 30s when most symptomatic per HPI. On arrival the patient is in NAD, AFVSS. EKG demonstrates SR with FAVB and no evidence of high grade block at this time. CXR wth decreased interstitial thickening from prior. WBC and platelets wnl. H/H 12.8/38 similar to prior values. Cr. 1.6 within prior range of values. Chemistry without acidosis. LFTs and electrolytes unremarkable. Troponin negative. Patient takes diltiazem and Bystolic, which could be contributing to his rate. Reasonable to admit for continued monitoring and possible medication dose adjustment. Case d/w Dr. Rod, [facility] hospitalist, who will evaluate the patient for admission. Impression & Plan Symptomatic bradycardia, Bradycardia, sinus, 1st degree AV block Discharge Plan Visit Data *Final* Discharge Date/Time: 06/11/19 21:47 Chief Complaint: Bradycardia Stated Complaint: HEART RATE KEEPS DROPPING ED Provider: Edwin Waterman Discharge Problem: Symptomatic bradycardia, Bradycardia, sinus, 1st degree AV block Patient Disposition: Admitted As Inpatient Discharge Instructions Interventions: ED Discharge Assessment Last Done: 06/11/19 21:47 The scribe's documentation has been prepared under my direction and personally reviewed by me in its entirety. I confirm that the note above accurately reflects all work, treatment, procedures, and medical decision making performed by me.
[2019-06-12 07:13] LABS: Hematocrit (blood only) 34.8 % (42-52); Hemoglobin 11.6 g/dL (14.0-18.0); Mean Corpuscular Hgb Conc 33.3 g/dL (32-36); Mean Platelet Volume 10.5 fL (7.4-10.4); Platelet Count 153 K/uL (130-400); RDW Coefficient of Variation 13.9 % (11.5-14.5); RDW Standard Deviation 47.3 fL (36.4-46.3); Red Blood Count 3.74 M/uL (4.7-6.1); White Blood Count 7.08 K/uL (4.8-10.8)
[2019-06-12 07:31] LABS: Calcium 8.4 mg/dl (8.5-10.1); Creatinine Clr Calc Pharmacy 62.9 ml/min; Est GFR (African American) 65.2; Est GFR (Non-African American) 56.2; Potassium 3.9 mmol/L (3.5-5.1)
[2019-06-12] MEDS: LACTATED RINGER'S 1,000 ML IV SCH (08:28)
[2019-06-12] MEDS ORDERED: cloNIDine HCl 0.1 MG TAB PO SCH (09:00)
[2019-06-12] MEDS: POTASSIUM CHLORIDE 10 MEQ TABCR PO SCH ×2 (09:13→21:20)
[2019-06-12] MEDS: APIXABAN 5 MG TABLET PO SCH ×2 (09:13→21:19)
[2019-06-12] MEDS: FUROSEMIDE 20 MG TAB PO SCH (09:13)
[2019-06-12] MEDS: CLOPIDOGREL BISULFATE 75 MG TAB PO SCH (09:13)
[2019-06-12] MEDS: PANTOprazole 40 MG TAB PO SCH (09:14)
--- NOTE | 2019-06-12 09:31 | Cardiology Consultation ---
Date of Consultation June 12, 2019 Assessment & Plan (1) Symptomatic bradycardia: Appears to been symptomatic from both bradycardia and mild hypotension. This was likely due to his medication changes over the past couple of weeks. Certainly the combination of diltiazem, clonidine and Bystolic produced his slower heart rates. Unclear why his medical regimen was changed, presumably due to higher blood pressures. I think we need to find a medical regimen which adequately treat both his potentially higher heart rates, high blood pressure and avoids the symptoms at presentation. I think he did well on his prior dose of diltiazem. His beta-aden was stopped at the time of his last admission due to concerns over bronchospasm. I think he was placed back on clonidine due to high blood pressure and he does have some refractory blood pressure measurements. However, this also likely causes an element of bradycardia. It is unclear why digoxin was discontinued. I would advocate resumption of his diltiazem at the old dose. Would discontinue the clonidine and Bystolic I think if his blood pressure remains elevated could try addition of Luis Antonio inhibition or ARB. He does have an element of mild renal dysfunction but is not clear to me from his record whether they have tried these medications or other been problems with these medications. He did not recognize the names of several Luis Antonio inhibitors or ARBs. Spironolactone could also be added as an antihypertensive. (2) Atrial fibrillation and flutter: He is maintaining sinus rhythm. He has had very infrequent and possibly no episodes of atrial fibrillation until his last admission. He did have higher rates, this appeared to be adequately controlled at the time of his discharge with a combination of diltiazem and digoxin. He will be maintained on systemic anticoagulation. (3) CAD (coronary artery disease): He has a history of both coronary disease and peripheral vascular disease. While ideally he would be on a beta-aden for his coronary disease, I do not believe he suffered a prior myocardial infarction. He has an allergy to aspirin but will continue on clopidogrel and apixaban. (4) CHF (congestive heart failure): He appears well compensated. His lung exam is benign. He is on daily diuretic. He has felt well since his last admission. Overall LV systolic function is normal. He likely had some decompensation related to some diastolic dysfunction rapid atrial fibrillation. (5) HTN (hypertension): He continues to have high blood pressures. Some of this may be due to withdrawal of certain agents. Will give him diltiazem today and adjust his antihypertensives as noted above. History of Present Illness Reason for Consultation: Hypotension, bradycardia Requesting Physician: Lizabeth Attending Physician: Lyle Barone, History of Present Illness The patient is a 73-year-old gentleman with a history of peripheral vascular disease, coronary artery disease and atrial fibrillation who was recently admitted with evidence diastolic heart failure and rapid atrial fibrillation. Patient had gone for an extended period without an episode of symptomatic or documented atrial fibrillation. During his last admission he did undergo a diuresis with significant improvement in his breathing difficulty. He also had some adjustment in his medications. At that time his Bystolic was discontinued and he was started on diltiazem and digoxin for better rate control. On June 01 he underwent elective cardioversion. He claims to have been feeling quite well subsequent to the cardioversion. He saw his primary care physician on 2 occasions since the cardioversion. It seems that on the 1st occasion his Bystolic was restarted. His digoxin was also discontinued. Three days ago he had clonidine added to his medical regimen. He is not clear on the details regarding these medication changes but I suspect some of this was due to worsening hypertension. Yesterday he began to feel weak and dizzy. He monitored his pulse and blood pressure at home and noted that both were low. He presented to the emergency room where his heart rate was in the 30s and his blood pressure was around 100 systolic. His medications were held and he was admitted for observation overnight. This morning he claims to be feeling well. He states that his dizziness has resolved. He does feel that his heart races at times with activity. He has not had any additional breathing trouble since his last discharge. He is an active person but is limited by lower leg claudication. This is not changed in severity recently. He denies any orthopnea. He has not had symptoms of chest pain. Allergies Allergy/AdvReac Type Severity Reaction Status Date / Time aspirin Allergy Severe ANAPHYLAXIS Verified 06/11/19 19:31 Home Medications Home Medications Medication Instructions Recorded Confirmed Type Eliquis 5 mg PO BID 05/16/19 06/11/19 History Incruse Ellipta 1 inh INHALATION DAILY PRN 05/16/19 06/11/19 History clopidogrel [Plavix] 75 mg PO QAM 05/16/19 06/11/19 History dutasteride 0.5 mg PO QPM 05/16/19 06/11/19 History pantoprazole 40 mg PO QAM 05/16/19 06/11/19 History ranitidine HCl 300 mg PO HS 05/16/19 06/11/19 History terazosin 10 mg PO HS 05/16/19 06/11/19 History Breo Ellipta 1 inh INHALATION QAM 05/17/19 06/11/19 History oxycodone-acetaminophen 1 tab PO DIRECTED PRN 05/17/19 06/11/19 History potassium chloride [Klor-Con M10] 10 meq PO BID #60 tab 05/19/19 06/11/19 Rx furosemide 20 mg PO QAM 05/28/19 06/11/19 History diltiazem HCl 240 mg PO QAM #30 cap 06/01/19 06/11/19 Rx clonidine HCl [Catapres] 0.1 mg PO BID 06/11/19 06/11/19 History nebivolol [Bystolic] 10 mg PO DAILY 06/11/19 06/11/19 History Patient History Medical History Severe peripheral arterial disease Atrial fibrillation dx 2017 - on eliquis BPH (benign prostatic hyperplasia) COPD (chronic obstructive pulmonary disease) Chronic back pain Chronic kidney disease, stage 2 (mild) PCP monitoring GERD (gastroesophageal reflux disease) [place] (hard of hearing) HTN (hypertension) Osteoarthritis Surgical History History of appendectomy History of cardiac cath 2017 - [facility] - CP --> CABG History of cholecystectomy History of colonoscopy History of coronary artery bypass graft 2017 - 3 vessels - Julian Bennett - Follows w/ Dr. Mckeon History of esophagogastroduodenoscopy (EGD) History of tooth extraction S/P aortobifemoral bypass surgery 2016 S/P femoral-femoral bypass surgery Status post percutaneous transluminal angioplasty ([employer]) left iliac Family History Other Family history of diabetes mellitus Social History Preferred Language: Estonian Communication Ability: Effective Loader Unloader Required: No Beliefs That Will Affect Care: None marital status: / Current Living Situation: Spouse Other Information That Helps Us Care for You: No Feels Safe at Home: Yes Safety Concerns: Feels Safe At This Time Smoking Status: Former smoker Second Hand Exposure: Yes (as a child) ; Hx Alcohol Use: No Hx Substance Use: No Review of Systems Review of Systems: All systems reviewed & are unremarkable except as noted in HPI & below No rest pain. Physical Exam Physical Exam: The patient is alert and oriented. Mood and affect appeared normal. He answered all questions appropriately. HEENT: Pupils are equal and reactive to light and accommodation. Extraocular movements are intact. The sclerae are anicteric. Neuro: Cranial nerves intact Neck: Patient's neck is supple. He has palpable carotid pulses bilaterally without bruits on auscultation. There is no evidence of jugular venous distention. The thyroid is not enlarged. Lungs: Clear to auscultation bilaterally. He has good air movement without use of accessory muscles. No rales wheezes or rhonchi. Cardiac: Heart demonstrates a regular rate and rhythm. Normal S1 and S2. No murmurs on examination. Pulses: The patient has palpable radial pulses bilaterally in the right was slightly more prominent than the left. He did not have palpable pulses in the dorsalis pedis or posterior tibial distribution. Extremities: There was no evidence of hypoperfusion. There is no cyanosis or clubbing. There is no edema. He did have trophic changes in both lower extremities Skin: I did not appreciate any rashes on examination today. Results & Data Vital Signs (Past 12 Hours) Vital Signs Temp Pulse Pulse Resp BP BP Pulse Ox 06/12/19 08:04 36.8 C 58 L 16 173/74 H 94 06/12/19 02:54 36.4 C L 55 L 18 150/48 H 94 06/12/19 00:07 186/79 H 06/11/19 23:58 36.5 C 50 L 16 203/76 H 93 06/11/19 23:54 52 L 06/11/19 22:04 36.7 C 53 L 18 173/80 H 94 06/11/19 21:47 51 L 18 165/68 H 97 Laboratory Results Abnormal Lab Results 06/11/19 06/11/19 06/11/19 18:46 18:46 18:46 WBC 8.59 RBC 4.07 L Hgb 12.8 L Hct 38.0 L MCV 93.4 MCH 31.4 MCHC 33.7 RDW Std Deviation 47.4 H RDW Coeff of [place] 13.8 Plt Count 162 MPV 9.9 Immature Gran % (Auto) 0.2 Neut % (Auto) 80.1 Lymph % (Auto) 11.8 [place] % (Auto) 6.1 Eos % (Auto) 1.7 Baso % (Auto) 0.1 Immature Gran # (Auto) 0.02 Neut # (Auto) 6.88 H Lymph # (Auto) 1.01 L [place] # (Auto) 0.52 Eos # (Auto) 0.15 Baso # (Auto) 0.01 Sodium 143 Potassium 4.2 Chloride 111 H Carbon Dioxide 27 Anion Gap 5.0 BUN 23 H Creatinine 1.60 H Est Cr Clr Drug Dosing 50.0 Est GFR ( Amer) 48.8 Est GFR (Non-Af Amer) 42.1 BUN/Creatinine Ratio 14.1 Glucose 94 Calcium 8.8 Phosphorus 2.8 Magnesium 1.8 Total Bilirubin 0.4 AST 15 ALT 21 Alkaline Phosphatase 66 Troponin I < 0.015 Total Protein 7.4 Albumin 3.7 Globulin 3.7 Albumin/Globulin Ratio 1.0 Lipase 89 TSH 0.664 Digoxin 0.8 06/12/19 06/12/19 06:01 06:01 WBC 7.08 RBC 3.74 L Hgb 11.6 L Hct 34.8 L MCV 93.0 MCH 31.0 MCHC 33.3 RDW Std Deviation 47.3 H RDW Coeff of [place] 13.9 Plt Count 153 MPV 10.5 H Immature Gran % (Auto) Neut % (Auto) Lymph % (Auto) [place] % (Auto) Eos % (Auto) Baso % (Auto) Immature Gran # (Auto) Neut # (Auto) Lymph # (Auto) [place] # (Auto) Eos # (Auto) Baso # (Auto) Sodium 143 Potassium 3.9 Chloride 109 H Carbon Dioxide 29 Anion Gap 5.0 BUN 21 H Creatinine 1.26 D Est Cr Clr Drug Dosing 62.9 Est GFR ( Amer) 65.2 Est GFR (Non-Af Amer) 56.2 BUN/Creatinine Ratio 17.0 Glucose 87 Calcium 8.4 L Phosphorus Magnesium Total Bilirubin AST ALT Alkaline Phosphatase Troponin I Total Protein Albumin Globulin Albumin/Globulin Ratio Lipase TSH Digoxin Diagnostic Findings Chest x-ray obtained at the time of admission which did not reveal any acute cardiopulmonary Echocardiogram was performed on 05/17/2019 which revealed preserved LV systolic function with mild mitral regurgitation. ECG Additional Comments: Admission EKG revealed sinus rhythm with a heart rate of 44 beats per minute and first-degree heart block. Nonspecific ST and T-wave changes. PG Care Time/CCT Total # of Minutes Spent Total Time Spent with Patient: Total time spent is greater than 50% in coordination of care (as documented) at patient's floor/unit and/or counseling patient: (1) CHF (congestive heart failure) Heart failure chronicity: unspecified Heart failure type: unspecified Qualified Code(s): I50.9 - Heart failure, unspecified
[2019-06-12] MEDS: dilTIAZem ER 180 MG CAPCR PO SCH (09:39)
[2019-06-12] MEDS: OXYCODONE/ACETAMINOPHEN 10-325 TAB PO PRN ×2 (12:21→21:19)
--- NOTE | 2019-06-12 20:16 | Hospitalist Progress Note ---
Date of Service June 12, 2019 Assessment & Plan (1) Symptomatic bradycardia: S/p cardioversion 10 days prior for PAF. Has remained in NSR since but has significant bradycardia. Bradycardia thought 2nd to multiple meds - BB, CCB, and clonidine. Holding BB. Holding clonidine. Continuing CCB. Appreciate Dr Fuller's consultation. Follow BPs/HRs. (2) COPD (chronic obstructive pulmonary disease): No exacerbation at this time Cont home meds (3) HTN (hypertension): Low BP at time of presentation Holding BB and clonidine Cont lasix Cont CCB BPs now higher following the above (4) BPH (benign prostatic hyperplasia): Continue Avodart and terazosin no issues (5) CAD (coronary artery disease): no evidence of ACS at this time cont plavix ideally should be on BB asa allergic (6) CKD (chronic kidney disease) stage 3, GFR 30-59 ml/min: creatinine at baseline today BMP in am for stability (7) Chronic low back pain: Continue prn Percocet (8) Atrial fibrillation and flutter: s/p recent cardioversion cont eliquis home tomorrow if BPs/ HRs stable? Subjective patient feeling well no c/o dizziness, lightheadedness, sob, chest pain tele still w/ HRs <60 but HR DOES indeed rise to 60-70 with activity Review of Systems Constitutional: no fever Respiratory: no cough and no dyspnea Cardiovascular: no chest pain Gastrointestinal: no abdominal pain, no nausea and no vomiting Physical Exam Constitutional: well developed and well nourished; no acute distress ENMT: external ear and nose normal, oropharynx normal Respiratory: normal respiratory effort, lungs clear to auscultation Cardiovascular: Rate/Rhythm: regular rhythm and + bradycardic Heart Sounds: normal S1 and normal S2; no murmur Vessels: posterior tibial pulses present and dorsalis pedis pulses present; no JVD Extremities: no edema Gastrointestinal (Abdomen): normal bowel sounds, soft, nontender, no hepatosplenomegaly Psychiatric: A+Ox3, euthymic affect Results & Data Vital Signs (Past 12 Hours) Vital Signs Temp Pulse Resp BP Pulse Ox 06/12/19 19:53 37.0 C 54 L 18 184/79 H 96 06/12/19 15:57 36.6 C 58 L 16 150/75 H 96 06/12/19 12:00 36.5 C 56 L 17 165/78 H 96 Laboratory Results Laboratory Results - last 24 hr 06/12/19 06/12/19 06:01 06:01 WBC 7.08 RBC 3.74 L Hgb 11.6 L Hct 34.8 L MCV 93.0 MCH 31.0 MCHC 33.3 RDW Std Deviation 47.3 H RDW Coeff of [place] 13.9 Plt Count 153 MPV 10.5 H Sodium 143 Potassium 3.9 Chloride 109 H Carbon Dioxide 29 Anion Gap 5.0 BUN 21 H Creatinine 1.26 D Est Cr Clr Drug Dosing 62.9 Est GFR ( Amer) 65.2 Est GFR (Non-Af Amer) 56.2 BUN/Creatinine Ratio 17.0 Glucose 87 Calcium 8.4 L PG Care Time/CCT Total # of Minutes Spent Total Time Spent with Patient: Total time spent is greater than 50% in coordination of care (as documented) at patient's floor/unit and/or counseling patient: (1) BPH (benign prostatic hyperplasia) Lower urinary tract symptom presence: symptoms absent Qualified Code(s): N40. 0 - Benign prostatic hyperplasia without lower urinary tract symptoms (2) Chronic low back pain Back pain laterality: unspecified Sciatica presence: unspecified whether sciatica present Qualified Code(s): M54.5 - Low back pain; G89.29 - Other chronic pain (3) CAD (coronary artery disease) Coronary Disease-Associated Artery/Lesion type: [place] artery [place] vs. transplanted heart: [place] heart Associated angina: without angina Qualified Code(s): I25.10 - Atherosclerotic heart disease of [place] coronary artery without angina pectoris (4) COPD (chronic obstructive pulmonary disease) COPD type: unspecified COPD Qualified Code(s): J44.9 - Chronic obstructive pulmonary disease, unspecified (5) HTN (hypertension) Hypertension type: essential hypertension Qualified Code(s): I10 - Essential (primary) hypertension
[2019-06-12] MEDS ORDERED: ALPRAZolam 0.25 MG TABLET PO PRN (20:42)
[2019-06-12] MEDS ORDERED: TERAZOSIN HCL 5 MG CAP PO SCH (21:00)
[2019-06-13] MEDS: Dutasteride 0.5 MG - ORDER AWAITING ACTION SCH ×2 (02:05→08:25)
[2019-06-13 07:33] LABS: BUN Creatinine Ratio 15.1 (10-20); Calcium 8.6 mg/dl (8.5-10.1); Creatinine Clr Calc Pharmacy 60.9 ml/min; Est GFR (African American) 62.7; Est GFR (Non-African American) 54.1; Potassium 3.7 mmol/L (3.5-5.1)
[2019-06-13] MEDS: APIXABAN 5 MG TABLET PO SCH (08:25)
[2019-06-13] MEDS: CLOPIDOGREL BISULFATE 75 MG TAB PO SCH (08:25)
[2019-06-13] MEDS: PANTOprazole 40 MG TAB PO SCH (08:25)
[2019-06-13] MEDS: POTASSIUM CHLORIDE 10 MEQ TABCR PO SCH (08:26)
[2019-06-13] MEDS: dilTIAZem ER 180 MG CAPCR PO SCH (08:26)
[2019-06-13] MEDS: FUROSEMIDE 20 MG TAB PO SCH (08:26)
--- NOTE | 2019-06-13 12:28 | Cardiology Progress Note ---
Date of Service June 13, 2019 Assessment & Plan (1) Symptomatic bradycardia: While his heart rates continued to be somewhat lower than I would expect on his current dose of diltiazem, may still be seeing some affects from his other medications. His rate is definitely improved. He is not currently symptomatic. He has maintained sinus rhythm. I think would be reasonable to discharge him on his current dose of diltiazem which is 180 milligrams daily. This can be titrated in the outpatient setting if required. (2) Atrial fibrillation and flutter: He is maintaining sinus rhythm. Continue systemic anticoagulation (3) CAD (coronary artery disease): No current symptoms of cardiac ischemia or angina. (4) CHF (congestive heart failure): He appears well compensated. His lung exam is benign. (5) HTN (hypertension): His blood pressure appears to be reasonably well controlled on his current medical regimen. My main concern is that will have poor control of his blood pressure on a reduced regimen of medications. I do not think clonidine with the addition of Bystolic represents a great option given his presentation. Additional antihypertensives could be tried such as [place] inhibitors, nitrates or ARBs. The addition of spironolactone can also be considered. If these measures are ineffective or he untoward side effects, we will have to readdress his need for clonidine or beta-blockers and or permanent pacing. Subjective This morning the patient was somewhat anxious regarding lower heart rates yesterday. He was also somewhat frustrated at his inability to sleep in the hospital. However, he did report ambulating around his room without symptoms. He did not report recurrent breathing difficulty or dizziness. Review of Systems Review of Systems: Per HPI Physical Exam Physical Exam: The patient is alert and oriented. Mood and affect appeared normal. He answered all questions appropriately. HEENT: Pupils are equal and reactive to light and accommodation. Extraocular movements are intact. The sclerae are anicteric. Neuro: Cranial nerves intact Lungs: Clear to auscultation bilaterally. He has good air movement without use of accessory muscles. No rales wheezes or rhonchi. Cardiac: Heart demonstrates a regular rate and rhythm. Normal S1 and S2. No murmurs on examination. Pulses: The patient has palpable radial pulses bilaterally that are equal in intensity Extremities: There was no evidence of hypoperfusion. There is no cyanosis or clubbing. There is no edema. He does have trophic changes Skin: I did not appreciate any rashes on examination today. Results & Data Vital Signs (Past 12 Hours) Vital Signs Temp Pulse Pulse Resp BP Pulse Ox 06/13/19 12:13 37.3 C 61 18 142/67 H 95 06/13/19 08:06 36.3 C L 71 18 140/71 94 06/13/19 08:00 53 L 06/13/19 04:33 36.5 C 53 L 15 170/76 H 93 Laboratory Results Abnormal Lab Results 06/13/19 06:41 Sodium 140 Potassium 3.7 Chloride 105 Carbon Dioxide 29 Anion Gap 6.0 BUN 20 H Creatinine 1.30 Est Cr Clr Drug Dosing 60.9 Est GFR ( Amer) 62.7 Est GFR (Non-Af Amer) 54.1 BUN/Creatinine Ratio 15.1 Glucose 102 H Calcium 8.6 ECG Additional Comments: Sinus bradycardia PG Care Time/CCT Total # of Minutes Spent Total Time Spent with Patient: Total time spent is greater than 50% in coordination of care (as documented) at patient's floor/unit and/or counseling patient: (1) CAD (coronary artery disease) Coronary Disease-Associated Artery/Lesion type: [place] artery [place] vs. transplanted heart: [place] heart Associated angina: without angina Qualified Code(s): I25.10 - Atherosclerotic heart disease of [place] coronary artery without angina pectoris (2) CHF (congestive heart failure) Heart failure chronicity: unspecified Heart failure type: unspecified Qualified Code(s): I50.9 - Heart failure, unspecified (3) HTN (hypertension) Hypertension type: essential hypertension Qualified Code(s): I10 - Essential (primary) hypertension
--- NOTE | 2019-06-13 14:28 | Discharge Summary ---
Date of Service date of admission - June 11, 2019 date of discharge - June 13, 2019 Admission HPI Per Admitting Provider 73 y/o male presented to the ED after he noted that his pulse at home was in the 30's. He had noticed today that at times he felt lightheaded but did not pass out. He denied having chest pain, SOB, cough, fever/chills, N/V/D. He reports that 10 days prior he underwent cardioversion for A-fib/flutter. He reports currently taking Bystolic 10mg daily (this med is not on his medication list), Cardizem CD 240mg, Clonidine (was restarted this week), and Lasix daily. Principal Diagnosis symptomatic bradycardia - resolved Discharge Exam Constitutional well developed and well nourished; no acute distress ENMT external ear and nose normal, oropharynx normal Respiratory normal respiratory effort, lungs clear to auscultation Cardiovascular Rate/Rhythm: regular rate and regular rhythm Heart Sounds: normal S1 and normal S2; no murmur Vessels: posterior tibial pulses present and dorsalis pedis pulses present; no JVD Extremities: no edema Gastrointestinal (Abdomen) normal bowel sounds, soft, nontender, no hepatosplenomegaly Psychiatric A+Ox3, euthymic affect Discharge Data Allergies Allergy/AdvReac Type Severity Reaction Status Date / Time aspirin Allergy Severe ANAPHYLAXIS Verified 06/18/19 08:40 Consultations cardiology - Amadeo Fuller MD [facility] Course (1) Symptomatic bradycardia: S/p cardioversion 10 days prior for PAF. Has remained in NSR since then but presented with significant sinus bradycardia. Seen in consult by cardiology - Bradycardia thought 2nd to multiple meds including use of beta aden, CCB, and clonidine. Beta aden and clonidine were held. His dilitazem CD was continued but the dose was reduced to 180mg once daily. Relative hypotension resolved and significant bradycardia resolved. HRs with walking were appropriate with observed rates on monitoring of 70-75. At rest HRs were 50s to 60s. He had no further dizziness, lightheadedness, or other cardiopulmonary symptoms. At discharge the following were advised - * discontinuation of clonidine * discontinuation of beta aden * ongoing use of cardizem CD but lowering of the dose to 180mg daily (2) COPD (chronic obstructive pulmonary disease): No exacerbation during the stay. He will continue prior home meds. (3) HTN (hypertension): Had LOW BP at time of presentation. Beta aden and clonidine were held. Blood pressures normalized with the above. He will continue lasix and cardizem CD. (4) BPH (benign prostatic hyperplasia): Continue Avodart and terazosin no issues while here (5) CAD (coronary artery disease): no evidence of ACS while hospitalized. cont plavix. ideally should be on beta aden but it will be deferred for now (see symptomatic bradycardia above). Could consider resuming as outpatient if heart rates will allow. Of note he is aspirin allergic. (6) CKD (chronic kidney disease) stage 3, GFR 30-59 ml/min: creatinine at baseline during the stay (Cr 1.3 at discharge) (7) Chronic low back pain: Continue prn Percocet (8) Atrial fibrillation and flutter: s/p recent cardioversion for PAF continue eliquis as previous see "symptomatic bradycardia" above for further details Total Time Total Time Spent Total Time Spent (In Minutes): 30 Total Time Includes: Examination of the Patient, Discharge Planning, Medication Reconciliation and Communication With Other Providers Discharge Plan Discharge Items Patient Disposition: Home - Self-Care Reason For Visit: SYPTOMATIC BRADYCARDIA (low heart rate) Discharge Diagnosis: 1. bradycardia (low heart rate) - due to medications. Improved. 2. low blood pressure - due to medications. Improved. Goals: 1. resolve the dizziness 2. improve the heart rate Activity: Resume your previous activity Activity Comment: as tolerated Non-emergency contact: Primary Care Provider and High School Music Director Call non-emergency contact if: you have any medication questions, your symptoms worsen and you have a fever Follow-up/Referrals: Zan Barcenas MD [Physician] - (see Dr Barcenas or Dr Fuller within 1 week) Marcio Bravo M.D. [Primary Care Provider] - (see your family doctor within 1 week) Diet: Heart Healthy Addtl Attending Provider Instructions: You were admitted to the hospital because of dizziness due to low heart rate and mildly low blood pressure. Your symptoms, heart rate, and blood pressure improved with holding some of your medications. You were seen by the rice drier operator. Recommendations: 1. STOP your bystolic. 2. STOP your clonidine. 3. LOWER the diltiazem extended release medication to 180mg ONCE daily. 4. CONTINUE your furosemide (lasix) as previous. 5. CONTINUE your terazosin as previous. 6. Check your blood pressure twice a day over the next week. If your systolic blood pressures (top number of the blood pressure reading) is consistently greater than 140 then please START the valsartan blood pressure medication 80mg once daily. I have given you a prescription for this. NO need to fill it now UNLESS your blood pressures are running high at home. 7. See Dr Fuller or Dr Barcenas within 1 week for your blood pressure and heart rate. 8. See your family doctor within 1 week. Return to [facility] if -- * you have dizziness or lightheadedness * you are having chest pain * you are having shortness of breath * any other concerns Pending Studies at Discharge: No Stand-Alone Forms: [facility] Medications and DC Order Prescriptions: New diltiazem HCl 180 mg capsule,extended release 24 hr 180 mg PO DAILY Qty: 30 RF: 5 Continued furosemide 20 mg tablet 20 mg PO QAM RF: 0 dutasteride 0.5 mg Capsule 0.5 mg PO QPM RF: 0 clopidogrel [Plavix] 75 mg Tablet 75 mg PO QAM RF: 0 terazosin 10 mg Capsule 10 mg PO HS RF: 0 ranitidine HCl 300 mg Tablet 300 mg PO HS RF: 0 pantoprazole 40 mg Tablet,Delayed Release (Dr/Ec) 40 mg PO QAM RF: 0 Eliquis 5 mg Tablet 5 mg PO BID RF: 0 Incruse Ellipta 62.5 mcg/actuation Blister With Device 1 inh INHALATION DAILY PRN (Reason: Shortness Of Breath Or Wheezing) RF: 0 Breo Ellipta 100-25 mcg/dose Blister With Device 1 inh INHALATION QAM RF: 0 oxycodone-acetaminophen 10-325 mg Tablet 1 tab PO DIRECTED PRN (Reason: Pain) RF: 0 potassium chloride [Klor-Con M10] 10 mEq Tablet,Er Particles/Crystals 10 meq PO BID Qty: 60 RF: 0 Discontinued clonidine HCl [Catapres] 0.1 mg tablet 0.1 mg PO BID RF: 0 Bystolic 20 mg tablet 10 mg PO DAILY RF: 0 No Action Bystolic 10 mg tablet 10 mg PO DAILY Qty: 30 RF: 0 clonidine HCl 0.1 mg tablet 0.1 mg PO BID Qty: 30 RF: 0 nitroglycerin 0.4 mg tablet, sublingual 0.4 mg SL Q5M PRNQty: 25 RF: 0 valsartan 160 mg tablet 160 mg PO DAILY Qty: 30 RF: 5 Discharge Orders: Discharge Order (Routine); Ordered 06/13/19 Ordered By: Armani Huggins Admission Data Admit Date/Time: 06/11/19 21:16 Attending Provider: Armani Huggins Admit Provider: Lyle Barone Primary Care Provider: Marcio Bravo Other Providers: Lyle Barone ; Zan Barcenas Other Interventions: Discharge Summary Assessment (RN) Last Done: 06/13/19 14:34 DC Date/Time DO NOT enter until pt leaves facility: 06/13/19 15:17
== END 2019-06-13 15:17 | disposition home or self-care (01) ==
LOC: 2E 18:09 → ED 18:09 → SUATTDRO 21:16 → 2E 21:47

== ENCOUNTER 2024-03-04 14:49 | Observation (INO) ==
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
[2024-03-04 15:27] LABS: Basophils # (auto) 0.01 K/uL (0.00-0.20); Basophils % (auto) 0.2 %; Eosinophils # (auto) 0.07 K/uL (0.00-0.50); Eosinophils % (auto) 1.2 %; Hematocrit (blood only) 32.7 % (42.0-52.0); Hemoglobin 11.2 g/dl (14.0-18.0); Immature Granulocytes # (auto) 0.07 K/uL (0.01-0.20); Immature Granulocytes % (auto) 1.2 %; Lymphocytes # (auto) 0.33 K/uL (1.20-3.40); Lymphocytes % (auto) 5.6 %; Mean Corpuscular Hemoglobin 32.3 pg (25.0-34.0); Mean Corpuscular Hgb Conc 34.3 g/dL (32.0-36.0); Mean Corpuscular Volume 94.2 fL (80.0-100.0); Mean Platelet Volume 9.4 fL (9.4-12.4); Monocytes # (auto) 0.66 K/uL (0.11-0.59); Monocytes % (auto) 11.3 %; Neutrophils # (auto) 4.72 K/uL (1.40-6.50); Neutrophils % (auto) 80.5 %; Platelet Count 142 K/uL (130-400); RDW Coefficient of Variation 13.8 % (11.5-14.5); RDW Standard Deviation 46.5 fL (36.4-46.3); Red Blood Count 3.47 M/uL (4.70-6.10); White Blood Count 5.86 K/ul (4.8-10.8)
[2024-03-04] MEDS: SODIUM CHLORIDE 0.9% 500 ML IV ONE ×3 (15:28→17:56)
--- NOTE | 2024-03-04 15:36 | XRay Report ---
XR chest 1V portable HISTORY: 78 years-old Male Sepsis COMPARISON: 03/01/2024 TECHNIQUE: AP view of the chest FINDINGS: Cardiac silhouette is enlarged. Median sternotomy. No pneumothorax, pleural effusion, airspace consol idation or overt pulmonary edema. Emphysema with chronic fibrotic changes. IMPRESSION: No acute process. ACT 112: Negative or not required by law. The above report was generated using voice recognition software. It may contain grammatical, syntax o r spelling errors. Electronically signed by: Alex Johnson M.D. 03/04/2024 3:35 PM
[2024-03-04 15:43] LABS: Alanine Aminotransferase 10 U/L (7-52); Albumin Level 3.6 gm/dl (3.4-5.0); Alkaline Phosphatase 63 U/L (34-104); Anion Gap 6 (3-11); Aspartate Aminotransferase 15 U/L (13-39); BUN Creatinine Ratio 16.8 (10-20); Bilirubin Direct 0.1 mg/dl (0-0.2); Bilirubin,Total 0.6 mg/dl (0.2-1.0); Blood Urea Nitrogen 21 mg/dl (6-23); Calcium 8.7 mg/dl (8.6-10.3); Carbon Dioxide 28 mmol/L (21-32); Chloride 105 mmol/L (98-107); Est GFR (African American) 63.5 ml/min; Est GFR (Non-African American) 54.8 ml/min; Glucose 147 mg/dl (70-99(Fasting)); Magnesium 1.9 mg/dl (1.7-2.4); Potassium 3.5 mmol/L (3.5-5.1); Sodium 139 mmol/L (136-145); Total Protein 6.8 gm/dl (6.0-8.3)
[2024-03-04 15:49] LABS: Troponin I High Sensitivity 8.2 pg/ml (0-20)
[2024-03-04 15:55] LABS: INR 1.2 (0.9-1.1); Partial Thromboplastin Ratio 1.2; Partial Thromboplastin Time 31 Seconds (21-31); Prothrombin Time 12.9 Seconds (9.0-12.0)
[2024-03-04 16:30] LABS: Base Excess VBG 2.5 mEq/L; HCO3 VBG 28 mmol/L; Oxygen Saturation VBG < 60.0 %; PCO2 VBG 45 mmHg (38-50); PO2 VBG 25 mmHg
[2024-03-04] MEDS: cefTRIAXone SODIUM 2,000 MG/50 ML BAG IV STA (17:56)
[2024-03-04 18:08] LABS: Adenovirus PCR Not Detected (NotDetected); Bordetella parapertussis PCR Not Detected (NotDetected); Bordetella pertussis PCR Not Detected (NotDetected); Chlamydia pneumoniae PCR Not Detected (NotDetected); Coronavirus 229E PCR Not Detected (NotDetected); Coronavirus CoV-2 (COVID19)PCR Not Detected (NotDetected); Coronavirus HKU1 PCR Not Detected (NotDetected); Coronavirus NL63 PCR Not Detected (NotDetected); Coronavirus OC43PCR Not Detected (NotDetected); Human Metapneumovirus PCR Not Detected (NotDetected); Influenza A PCR Not Detected (NotDetected); Influenza B PCR Not Detected (NotDetected); Mycoplasma pneumoniae PCR Not Detected (NotDetected); Parainfluenza Virus 1 PCR Not Detected (NotDetected); Parainfluenza Virus 2 PCR Not Detected (NotDetected); Parainfluenza Virus 3 PCR Not Detected (NotDetected); Parainfluenza Virus 4 PCR Not Detected (NotDetected); Respiratory Syncytial VirusPCR Not Detected (NotDetected); Rhinovirus/Enterovirus PCR Not Detected (NotDetected)
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
[2024-03-04] MEDS: MAGNESIUM SULFATE / D5W 1 GM/100 ML BAG IV STA (18:27)
[2024-03-04] MEDS ORDERED: NITROGLYCERIN SL 0.4 MG/TAB TAB SL PRN (20:03)
[2024-03-04 21:46] LABS: Appearance Urine Clear (Clear); Bacteria Urine Automated None Seen (None Seen); Bilirubin Urine Negative (Negative); Blood Urine 2+ (Negative); Color Urine Yellow; Epithelial Cell Urine Auto 0-2 /hpf (0-2); Glucose Urine UA Negative (Negative); Hyaline Casts Urine Present /lpf (None Presnt); Ketones Urine Negative (Negative); Leukocyte Esterase Urine 2+ (Negative); Nitrite Urine Negative (Negative); Protein Urine Negative (Negative); Specific Gravity Urine 1.016 (1.000-1.030); Urobilinogen Urine Negative (Negative); WBC Urine Automated 21-50 /hpf (0-5); pH Urine 5.5 (4.5-7.5)
[2024-03-04] MEDS: APIXABAN 5 MG TABLET PO SCH (22:03)
[2024-03-04] MEDS: FAMOTIDINE 40 MG TABLET PO SCH (22:04)
[2024-03-04] MEDS: TERAZOSIN HCL 5 MG CAP PO SCH (22:04)
[2024-03-04] MEDS: oxyCODONE/ACETAMINOPHEN 10-325 TAB PO PRN (22:05)
[2024-03-04] MEDS: Patient's HEIGHT &/or WEIGHT Needed STA (22:07)
[2024-03-05 04:19] LABS: Basophils # (auto) 0.02 K/uL (0.00-0.20); Basophils % (auto) 0.4 %; Eosinophils # (auto) 0.17 K/uL (0.00-0.50); Eosinophils % (auto) 3.2 %; Hematocrit (blood only) 27.7 % (42.0-52.0); Hemoglobin 9.4 g/dl (14.0-18.0); Immature Granulocytes # (auto) 0.06 K/uL (0.01-0.20); Immature Granulocytes % (auto) 1.1 %; Lymphocytes # (auto) 0.62 K/uL (1.20-3.40); Lymphocytes % (auto) 11.8 %; Mean Corpuscular Hgb Conc 33.9 g/dL (32.0-36.0); Mean Corpuscular Volume 94.2 fL (80.0-100.0); Mean Platelet Volume 9.3 fL (9.4-12.4); Monocytes # (auto) 0.85 K/uL (0.11-0.59); Monocytes % (auto) 16.2 %; Neutrophils # (auto) 3.53 K/uL (1.40-6.50); Neutrophils % (auto) 67.3 %; Platelet Count 145 K/uL (130-400); RDW Coefficient of Variation 13.8 % (11.5-14.5); RDW Standard Deviation 46.9 fL (36.4-46.3); Red Blood Count 2.94 M/uL (4.70-6.10); White Blood Count 5.25 K/ul (4.8-10.8)
[2024-03-05 04:23] LABS: BUN Creatinine Ratio 17.5 (10-20); Calcium 8.1 mg/dl (8.6-10.3); Creatinine Clr Calc Pharmacy 55.1 ml/min; Est GFR (Non-African American) 61.3 ml/min; Potassium 4.2 mmol/L (3.5-5.1)
[2024-03-05] MEDS: VALSARTAN 80 MG TAB PO SCH (08:19)
[2024-03-05] MEDS: FINASTERIDE 5 MG TAB PO SCH (08:20)
[2024-03-05] MEDS: dilTIAZem HCL 240 MG CAPCR PO SCH (08:20)
[2024-03-05] MEDS: ESCITALOPRAM OXALATE 20 MG TAB PO SCH (08:20)
[2024-03-05] MEDS: MULTIVITAMIN TAB PO SCH (08:20)
[2024-03-05] MEDS: PANTOprazole 40 MG TAB PO SCH (08:20)
[2024-03-05] MEDS: CLOPIDOGREL BISULFATE 75 MG TAB PO SCH (08:21)
[2024-03-05] MEDS: FLUTICASONE/VILANTEROL 100/25MCG 14 PUFFS/INHALER INH SCH (08:21)
[2024-03-05] MEDS: CHOLECALCIFEROL 25 MCG (1000 UNITS) TAB PO SCH (08:21)
--- NOTE | 2024-03-05 11:09 | Hospitalist Progress Note ---
Date of Service March 05, 2024 Assessment & Plan (1) Atrial fibrillation and flutter: Plan: Acute on chronic/unstable Afib on current tele monitor (reviewed) ranging 100-120s, symptomatic Continue Eliquis prophylaxis and Diltiazem CD 240mg daily - Update echocardiogram - Discussed case with Dr. Barcenas, patient's established clinical pharmacist, will trial him on Metoprolol Tartrate 50mg BID and monitor response. If tolerates without further bouts of bradycardia, will transition him to Metoprolol Succinate 100mg daily tomorrow AM. If not, will consider formal consult. Alternatively, if fails the BB addition, consider trial of Digoxin. (2) UTI (urinary tract infection): Plan: Acute/unstable UA from 03/01 infected appearing with culture yielding growth of pansensitive E. coli with Rx for Cipro 500mg BID. Hypotensive and tachycardic in the ED, treated with NSS boluses x 3 with resolution Continue on Rocephin inpatient, follow repeat BC/UC/UA ordered/pending at this time PT/OT eval and treat (3) CAD (coronary artery disease): Plan: Chronic/stable Cath 07/22/2023: Severe multivessel CAD. 70% proximal LAD was seen, 100% mid LAD occlusion after small to medium D2, 100% mid circumflex, and 100% mid RCA disease was noted. No high risk CAD at that time amenable to PCI. Continue Plavix. Not on any statin therapy but his cholesterol was last checked in 06/2023 and was well controlled. (4) Symptomatic bradycardia: Plan: No bradycardia on admission, follow on telemetry - No marked bradycardia noted overnight on review of documented HRs - lowest documented was 59 (5) Prostate cancer: Plan: Chronic/stable Follows with urology UTI treatment as above No acute change in management Bladder scan for PVR greater than 350 S/p radiation therapy and on androgen deprivation therapy, continued Continue dutasteride/terazosin for LUTS Plan Monitor overnight due to medication adjustments. Await urine culture and sensitivity. Continue Rocephin. Consider Pyridium due to ongoing dysuria. Update labs in AM. Above plan of care to be d/w Dr. Hearn. Admission and Anticipated Discharge Date Admission Date: March 04, 2024 Shraddha Ames was seen and examined on daily rounds this morning. He is a 78 yo M placed in observation due to afib with rvr, hypotension and possible UTI. He continues to endorse symptoms of dysuria as well as lightheadedness/dizziness upon standing. He remains in afib with a heart rate ranging 100-120s at rest. He denies chest pain or dyspnea. He is still in the ER awaiting a bed upstairs. His urine culture is still pending. Review of Systems 2 Review of Systems: All systems reviewed and are unremarkable except as noted in HPI and below. Denies fever, chills, fatigue, headache, nasal congestion, sore throat, cough, chest pain, shortness of breath, orthopnea, PND, abdominal pain, n/v/d, constipation, hematuria, frequency, back pain, joint pain or swelling, easy bruising or bleeding, skin lesions or rashes. Physical Exam 2 Physical Exam: GENERAL: 78 yo Well-developed, well-nourished elderlyl M. NAD. LUNGS: Clear to auscultation bilaterally. No W/R/R. CARDIOVASCULAR: Irregular rate and rhythm ABDOMEN: Soft, non-tender and non-distended. BS normoactive x 4 quad. EXTREMITIES: No edema. Non-tender. Peripheral pulses +2/4. SKIN: Warm, dry, intact. No rashes or lesions. Results & Data Results & Data Vital Signs (Past 12 Hours) Vital Signs Pulse Pulse Resp BP BP Pulse Ox O2 Del Method 03/05/24 07:16 101 H 03/05/24 07:00 95 H 13 162/110 H 94 Room Air 03/05/24 02:03 59 L 14 03/05/24 01:12 80 16 03/05/24 00:30 69 20 03/05/24 00:30 145/67 H 03/05/24 00:00 150/90 H 03/05/24 00:00 101 H 17 Laboratory Results 03/05/24 03:36 03/05/24 03:36 PG Care Time/CCT Total # of Minutes Spent Total Time Spent with Patient: Total time spent is greater than 50% in coordination of care (as documented) at patient's floor/unit and/or counseling patient: Coding Level of Care Code 62903 SUB INP/OBS CARE 2/35MIN Diagnoses Atrial fibrillation and flutter I48.91; I48.92 Acute cystitis without hematuria N30.00 Urinary tract infection type: acute cystitis Hematuria presence: without hematuria Coronary artery disease involving [place] coronary artery of [place] heart without angina pectoris I25.10 Coronary Disease-Associated Artery/Lesion type: [place] artery [place] vs. transplanted heart: [place] heart Associated angina: without angina Symptomatic bradycardia R00.1 Prostate cancer C61 (2) UTI (urinary tract infection) Urinary tract infection type: acute cystitis Hematuria presence: without hematuria Qualified Code(s): N30.00 - Acute cystitis without hematuria (3) CAD (coronary artery disease) Coronary Disease-Associated Artery/Lesion type: [place] artery [place] vs. transplanted heart: [place] heart Associated angina: without angina Qualified Code(s): I25.10 - Atherosclerotic heart disease of [place] coronary artery without angina pectoris
[2024-03-05] MEDS: METOPROLOL TARTRATE 50 MG TAB PO SCH (11:26)
[2024-03-05] MEDS: cefTRIAXone SODIUM 2,000 MG/50 ML BAG IV SCH (17:59)
--- NOTE | 2024-03-05 18:57 | XCELERA ---
[id number]
[2024-03-05] MEDS: traZODone HCL 100 MG TAB PO PRN (20:43)
[2024-03-06] MEDS: PHENAZOPYRIDINE HCL 200 MG TAB PO STA (01:56)
--- NOTE | 2024-03-06 06:27 | Electrocardiogram Report ---
Test Reason : Blood Pressure : / mmHG Vent. Rate : 106 BPM Atrial Rate : 256 BPM P-R Int : 000 ms QRS Dur : 090 ms QT Int : 332 ms P-R-T Axes : 223 011 032 degrees QTc Int : 441 ms Atrial flutter with variable A-V block Nonspecific ST and T wave abnormality Abnormal ECG When compared with ECG of 10-JUL-2023 14:21, Atrial flutter has replaced Sinus bradycardia Confirmed by Edgardo Cali ([id number]) on 03/06/2024 6:27:05 AM Referred By: REFERRED SELF Confirmed By:Edgardo Cali
[2024-03-06 07:07] LABS: Basophils # (auto) 0.02 K/uL (0.00-0.20); Basophils % (auto) 0.4 %; Eosinophils # (auto) 0.24 K/uL (0.00-0.50); Eosinophils % (auto) 4.4 %; Immature Granulocytes # (auto) 0.06 K/uL (0.01-0.20); Immature Granulocytes % (auto) 1.1 %; Lymphocytes # (auto) 0.64 K/uL (1.20-3.40); Lymphocytes % (auto) 11.8 %; Mean Corpuscular Hemoglobin 32.3 pg (25.0-34.0); Mean Corpuscular Hgb Conc 34.5 g/dL (32.0-36.0); Mean Corpuscular Volume 93.5 fL (80.0-100.0); Mean Platelet Volume 9.1 fL (9.4-12.4); Monocytes # (auto) 0.62 K/uL (0.11-0.59); Monocytes % (auto) 11.4 %; Neutrophils # (auto) 3.84 K/uL (1.40-6.50); Neutrophils % (auto) 70.9 %; Platelet Count 145 K/uL (130-400); RDW Coefficient of Variation 13.9 % (11.5-14.5); White Blood Count 5.42 K/ul (4.8-10.8)
[2024-03-06 07:10] LABS: BUN Creatinine Ratio 14.3 (10-20); Calcium 8.7 mg/dl (8.6-10.3); Creatinine Clr Calc Pharmacy 56.1 ml/min; Est GFR (African American) 72.5 ml/min; Est GFR (Non-African American) 62.6 ml/min
--- NOTE | 2024-03-06 13:07 | Discharge Summary ---
Date of Service March 06, 2024 Admission HPI Per Admitting Provider Vital seen at the bedside. He reports that he has had increased global weakness, fatigue, dysuria for around 5 days, and has in the last day felt very lightheaded. He initially thought this was his A-fib as he had 2 episodes of his heart racing to the 130s earlier in the week. He felt lightheaded and dizzy today and thinks his heart was racing, but notes his blood pressure was low with a relatively normal rate when he was in the ER. He does have a history of bradycardia in addition to A-fib/a flutter with RVR. He was diagnosed with a UTI on Friday, has taken all doses of ciprofloxacin as directed but this has not improved his dysuria or polyuria and continues to feel tired and washed out. No fever chills or sweats. He has not had chest pain at any point in the previous few days. No syncope. No abdominal pain or flank pain. Medical History: Reviewed Medications: Reviewed Surgical History: Reviewed Family history: Reviewed Allergies: Reviewed Social History: Reviewed Code Status: Patient has been full code. Reviewed resuscitate citation, full code, and DNR/DNI with patient and his at bedside. On discussion at the bedside patient would like to switch to DNR/DNI in the event of a cardiopulmonary arrest, but would be okay with intubation temporarily outside of cardiac arrest for declining respiratory status Principal Diagnosis Radiation cystitis Afib with variable rate control Discharge Exam GENERAL: 78 yo Well-developed, well-nourished elderly M. NAD. LUNGS: Clear to auscultation bilaterally. No W/R/R. CARDIOVASCULAR: Irregular with controlled rate ABDOMEN: Soft, non-tender and non-distended. BS normoactive x 4 quad. EXTREMITIES: No edema. Non-tender. Peripheral pulses +2/4. SKIN: Warm, dry, intact. No rashes or lesions. Discharge Data Allergies Allergy/AdvReac Type Severity Reaction Status Date / Time aspirin Allergy Severe ANAPHYLAXIS Verified 02/02/24 11:43 Consultations 03/04/24 17:42 ED Decision to Admit Stat Procedures Performed 03/06/24 06:20 03/06/24 06:20 Chest X-Ray 03/04/24 15:08 XR chest 1V portable HISTORY: 78 years-old Male Sepsis COMPARISON: 03/01/2024 TECHNIQUE: AP view of the chest FINDINGS: Cardiac silhouette is enlarged. Median sternotomy. No pneumothorax, pleural effusion, airspace consolidation or overt pulmonary edema. Emphysema with chronic fibrotic changes. IMPRESSION: No acute process. ACT 112: Negative or not required by law. The above report was generated using voice recognition software. It may contain grammatical, syntax or spelling errors. Electronically signed by: Alex Johnson M.D. 03/04/2024 3:35 PM Hospital Course (1) Atrial fibrillation and flutter: Acute on chronic/unstable Afib on current tele monitor (reviewed) ranging 100-120s, symptomatic Continue Eliquis prophylaxis and Diltiazem CD 240mg daily - Updated echocardiogram - EF 50-55% - Discussed case with Dr. Barcenas, patient's established test data developer, started on Lopressor 50mg BID and he is tolerating well with improved rates - Will d/c home on Lopressor 50mg BID and he can f/u with Dr. 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 coli with Rx for Cipro 500mg BID. Hypotensive and tachycardic in the ED, treated with NSS boluses x 3 with resolution Continue on Rocephin inpatient, repeat urine Cx growth of 1,000 colonies of bacteria - Discontinue antibiotics, UTI RULED OUT. - Suspect continued symptoms of dysuria are due to radiation cystitis, d/w urology, will rx Pyridium 100mg TID prn dysuria that he can take at home, counseled it will turn fluids orange (3) CAD (coronary artery disease): Chronic/stable Cath 07/22/2023: Severe multivessel CAD. 70% proximal LAD was seen, 100% mid LAD occlusion after small to medium D2, 100% mid circumflex, and 100% mid RCA disease was noted. No high risk CAD at that time amenable to PCI. Continue Plavix. Not on any statin therapy but his cholesterol was last checked in 06/2023 and was well controlled. (4) Symptomatic bradycardia: No bradycardia on admission, follow on telemetry - No marked bradycardia noted during this admission, tolerating addition of beta aden (5) Prostate cancer: Chronic/stable Follows with urology No acute change in management S/p radiation therapy, last urology visit and today pt notes he declined further ADT - PSA obtained today and is <1 Continue dutasteride/terazosin for LUTS Plan Patient is medically and hemodynamically stable for discharge home today with outpatient follow up with his PCP, cardiology and urology. Case d/w Dr. Hearn who is in agreement with aforementioned. Total Time Total Time Spent Total Time Spent (In Minutes): 35 Discharge Plan Discharge Items Patient Disposition: Home - Self-Care Reason For Visit: UTI, WEAKNESS Discharge Diagnosis: Atrial fibrillation with uncontrolled heart rates Activity: Resume your previous activity Non-emergency contact: Primary Care Provider and Account Resolution Specialist Call non-emergency contact if: you have any medication questions and your symptoms worsen Follow-up/Referrals: Marcio Bravo M.D. [Primary Care Provider] - Diet: Heart Healthy Addtl Attending Provider Instructions: You were hospitalized initially with the possibility of a urinary tract infection which was thought to be causing your burning when you pee. Fortunately, your urine sample did not grow out any bacteria on your culture so your antibiotics have been discontinued. The burning you are experiencing is likely due to the radiation treatment you received for your prostate cancer. You are being prescribed a medication called Pyridium that you can take up to three times a day as needed for burning pain when you pee. Please be advised that your bodily fluids will change color to a bright orange including you pee so do not be alarmed by this. For your heart rate, we placed you on a medication called Metoprolol Tartrate or Lopressor 50mg. You are to take one tablet in the morning and one tablet before bed. If you begin to feel dizzy or lightheaded, check your blood pressure and pulse. Call your test data developer and/or PCP and/or go to the ER if your pulse is less than 50 beats per minute. You will need to schedule a follow up with Dr. Barcenas in his office to discuss if you will be continued on this medication or if he will switch you to something else to control your atrial fibrillation. Please ensure that you follow up with your family doctor within 1 week of discharge. In the event that you are experiencing a medical emergency, call 911 or go to the nearest emergency room. Pending Studies at Discharge: No Stand-Alone Forms: My [facility], Smoking Cessation Medications and DC Order Prescriptions: New metoprolol tartrate 50 mg Tablet 50 mg PO BID Qty: 60 0RF phenazopyridine [Pyridium] 100 mg tablet 100 mg PO TID PRN (Reason: pain) Qty: 20 0RF Continued oxycodone-acetaminophen [Percocet] 10-325 mg tablet 1 tab PO Q6H PRN (Reason: Pain) pantoprazole 40 mg tablet,delayed release (DR/EC) 40 mg PO DAILY escitalopram oxalate 20 mg tablet 20 mg PO DAILY multivitamin Tablet 1 tab PO DAILY Rx Instructions: Isnt sure if he still takes this cholecalciferol (vitamin D3) 25 mcg (1,000 unit) capsule 25 mcg PO DAILY diltiazem HCl 240 mg tablet extended release 24 hr 240 mg PO QAM Qty: 90 3RF valsartan 160 mg tablet 320 mg PO QAM Qty: 180 3RF trazodone 100 mg tablet 100 mg PO HS PRN (Reason: Sleep) Eliquis 5 mg tablet 5 mg PO BID clopidogrel [Plavix] 75 mg Tablet 75 mg PO QAM terazosin 10 mg Capsule 10 mg PO HS fluticasone furoate-vilanterol [Breo Ellipta] 100-25 mcg/dose Blister With Device 1 inh INHALATION QAM famotidine 40 mg Tablet 40 mg PO QPM dutasteride 0.5 mg capsule 0.5 mg PO DAILY Discontinued ciprofloxacin HCl 500 mg tablet 500 mg PO BID Discharge Orders: Discharge Order (Routine); Ordered 03/06/24 Ordered By: Nuzhat Long Admission Data Admit Date/Time: 03/04/24 18:23 Attending Provider: Rodolfo Hearn Admit Provider: Anthony Funez Primary Care Provider: Marcio Bravo Other Providers: Anthony Funez Other Interventions: Discharge Summary Assessment (RN) Last Done: 03/06/24 11:39 Coding Level of Care Code 99588 INP/OBS DISCH >30 MIN Diagnoses Atrial fibrillation and flutter I48.91; I48.92 Acute cystitis without hematuria N30.00 Urinary tract infection type: acute cystitis Hematuria presence: without hematuria Coronary artery disease involving [place] coronary artery of [place] heart without angina pectoris I25.10 Coronary Disease-Associated Artery/Lesion type: [place] artery [place] vs. transplanted heart: [place] heart Associated angina: without angina Symptomatic bradycardia R00.1 Prostate cancer C61
== END 2024-03-06 13:34 | disposition home or self-care (01) ==
LOC: ED 14:49 → EDINP 14:49 → SUATTDRO 18:23 → 2N 20:03